=== PATIENT | female | born 1950 | race Caucasian/White ===

== ENCOUNTER → 2018-05-08 | Outpatient (CLI) | payer OTHER ==
[~2018-05-08] MED LIST: ALPR1; ASPI81CH; DOXY100 PO; ESOM20; HYDACE7.5; KLONOPIN; LISI5; QUET25; [UNRECOGNIZED DRUG - OTHER]; [UNRECOGNIZED DRUG - REMARK]
[2018-05-08 18:53] LABS: U Amphetamine Screen Not Detected; U Barbituate Screen Not Detected; U Benzodiazapine Screen Not Detected; U Buprenorphine Screen Not Detected; U Cannabinoids Screen Not Detected; U Cocaine Screen Not Detected; U Methadone Screen Not Detected; U Methamphetamine Screen Not Detected; U Opiates Screen DETECTED; U Oxycodone Screen Not Detected; U Phencyclidine Screen Not Detected; U Propoxyphene Screen Not Detected
== END | disposition home or self-care (01) ==
LOC: LAB SHORT 14:30 → LAB 14:30
PROVIDERS: Physician Assistant
DX: Z51.81 Encounter for therapeutic drug level monitoring (principal); Z79.899 Other long term (current) drug therapy

== ENCOUNTER 2018-10-31 07:20 | Inpatient (IN) | payer OTHER ==
[~2018-10-31] VITALS: Ht 157.5 cm; Wt 77.1 kg
[~2018-10-31 07:20] MED LIST changes: +AMLO5 PO; -ASPI81CH; +ASPI81CH PO; +CIPR250 PO; +DOCU100 PO; +DOXE150 PO; +LAMO100 PO; +LOVA40 PO; +Lopressor 25 mg25 MG PO; +METF500C PO; +Norco 10-325 T1 EACH PO; +Prazosin HCl1 MG PO; +QUETIAPINE FUM400 MG PO; +Verotin-Gr Cap1 EACH PO; +Zantac150 MG PO; +Zestril40 MG PO
[2018-10-31] MEDS ORDERED: ULTRA-LIGHT RO1 EACH UD (09:02)
[2018-10-31] MEDS ORDERED: IBUP800 PO (09:03)
[2018-10-31 10:13] LABS: BASOPHILS ABSOLUTE AUTO 0.05 K/mm3 (0.00-0.23); BASOPHILS PERCENT AUTO 1 % (0-2); EOSINOPHILS ABSOLUTE AUTO 0.15 K/mm3 (0.00-0.68); EOSINOPHILS PERCENT AUTO 2 % (0-6); Hematocrit 43.8 % (33.0-51.0); Hemoglobin 14.2 g/dL (11.5-16.0); IMMATURE GRAN ABSOLUTE AUTO 0.03 K/mm3 (0.00-0.10); IMMATURE GRAN PERCENT AUTO 0 % (0-1); LYMPHOCYTES ABSOLUTE AUTO 1.67 K/mm3 (0.84-5.20); LYMPHOCYTES PERCENT AUTO 22 % (21-46); MONOCYTES ABSOLUTE AUTO 0.78 K/mm3 (0.16-1.47); MONOCYTES PERCENT AUTO 10 % (4-13); Mean Corpuscular HGB 29.6 pg (26.0-34.0); Mean Corpuscular HGB Conc 32.4 g/dL (31.5-36.5); Mean Corpuscular Volume 91 fL (80-100); NEUTROPHILS ABSOLUTE AUTO 4.83 K/mm3 (1.96-9.15); NEUTROPHILS PERCENT AUTO 64 % (41-73); Platelet Count 256 K/mm3 (150-400); RDW Coefficient Variation 13.2 % (11.7-14.2); RDW Standard Deviation 45.1 fL (35.1-46.3); Red Blood Cell Count 4.79 M/mm3 (3.80-5.20); White Blood Cell Count 7.51 K/mm3 (4.00-11.30)
[2018-10-31 10:17] LABS: Source, Urine Catheter
[2018-10-31 10:28] LABS: Alanine Aminotransfer (ALT/SGP 27 U/L (12-78); Albumin, Blood 3.4 g/dL (3.4-5.0); Alk Phos 99 U/L (50-136); Anion Gap 8 mmol/L (6-16); Aspartate Aminotrans (AST/SGOT 26 U/L (12-37); Bilirubin, Total 0.3 mg/dL (0.1-1.0); Blood Urea Nitrogen 15 mg/dL (8-24); Bun/Creatinine Ratio 23.4 (12.0-20.0); CO2, Blood 28 mmol/L (21-32); Calcium, Blood 8.6 mg/dL (8.5-10.1); Chloride, Blood 107 mmol/L (98-108); Creatinine, Blood 0.64 mg/dL (0.40-1.00); Globulin, Blood 3.4 g/dL (2.2-4.0); Glomerular Filtration Rate >60 (60-); Glucose, Blood 106 mg/dL (70-99); Potassium, Blood 4.4 mmol/L (3.5-5.5); Sodium, Blood 143 mmol/L (136-145); Total Protein, Blood 6.8 g/dL (6.4-8.2)
[2018-10-31 10:29] LABS: Bilirubin, Urine Neg (Neg); Blood, Urine Neg (Neg); Glucose Qualitative, Urine Neg (Neg); Ketones, Urine Neg (Neg); Leukocyte Esterase, Urine Neg (Neg); Nitrite, Urine Neg (Neg); Protein, Urine Neg (Neg); Specific Gravity, Urine 1.015 (1.003-1.022); Urobilinogen, Urine 1+ (Normal); pH, Urine 6.5 (5.0-8.0)
[2018-10-31 10:31] LABS: Appearance, Urine Clear (Clear); Color, Urine Yellow (P-Yellow)
--- NOTE | 2018-10-31 17:56 | NUR ---
SHIFT SUMMARY PT A&OX4, VSS, CBGS AC/HS. S/P L HIP FRACTURE. PAIN MANAGED WITH 1 MG DILAUDID. ALYSSA PO, DENIES N&V. PANDEY PATENT & DRAINING MARANDA URINE, STAT LOCK ON, OFF FLOOR. BEDREST. 20G, IVF @ 75 MLS/HR. PLAN IS SG TOMORROW, NPO MIDNIGHT, CONSULT W/ORTHO SURGEON COMPLETE. BLOOD CONSENT SIGNED. WILL CTM & TX PER EMAR UNTIL REPORT GIVEN TO ONCOMING NOC RN.
--- NOTE | 2018-11-01 03:59 | NUR ---
RN STATED SHE WOULD EMPTY PANDEY CATH.
--- NOTE | 2018-11-01 04:26 | NUR ---
SUMMARY: PT ADMITTED 10/31 WITH L HIP FX. NO ACUTE CHANGE TONIGHT. VSS, A/O, OFTEN ANXIOUS AND HAS CHRONIC PAIN. PT REPORTS PAIN AT HIP 10/10 WITH EVERY RATING. PT REPORTS PAIN TOLERABLE WITH 2MG DILAUDID AND "IF SHE DOESN'T MOVE". PT HAS REFUSED SERVERAL REPOSITIONING OFFERS TONIGHT. PANDEY IS DRAINING, NO INSULIN NEEDED AT HS. PT HAS BEEN NPO SINCE 0000. PLAN IS FOR OR TODAY.
[2018-11-01 06:55] LABS: Hematocrit 38.3 % (33.0-51.0); Hemoglobin 12.4 g/dL (11.5-16.0); Mean Corpuscular HGB 29.8 pg (26.0-34.0); Mean Corpuscular HGB Conc 32.4 g/dL (31.5-36.5); Mean Corpuscular Volume 92 fL (80-100); Mean Platelet Volume 9.5 fL (9.1-12.4); Platelet Count 188 K/mm3 (150-400); RDW Coefficient Variation 13.2 % (11.7-14.2); Red Blood Cell Count 4.16 M/mm3 (3.80-5.20); White Blood Cell Count 7.85 K/mm3 (4.00-11.30)
[2018-11-01 07:06] LABS: Anion Gap 5 mmol/L (6-16); Blood Urea Nitrogen 17 mg/dL (8-24); Bun/Creatinine Ratio 31.2 (12.0-20.0); CO2, Blood 30 mmol/L (21-32); Calcium, Blood 8.1 mg/dL (8.5-10.1); Chloride, Blood 103 mmol/L (98-108); Creatinine, Blood 0.55 mg/dL (0.40-1.00); Glomerular Filtration Rate >60 (60-); Glucose, Blood 124 mg/dL (70-99); Potassium, Blood 4.5 mmol/L (3.5-5.5); Sodium, Blood 138 mmol/L (136-145)
--- NOTE | 2018-11-01 11:17 | NUR ---
Patient was resting when I entered the room but quickly awoke upon the mention of her name. Patient complained of pain so we caled the nurse and pain medication was immediately administered. Therapeutic alliance was easily established and so patient shared openly about past hurts, spiritual struugles and emotional pain. I listened empathically, explored adventist beliefs, conducted a life review, gave spiritual direction and counseling department chair, provided emotional support and prayer. Patient responded well to all interventions and displayed evidence of catharsis, restored manoj and elevated mood. Patient expressed gratitude for my time and care.
--- NOTE | 2018-11-01 17:31 | NUR ---
PT ARRIVED TO ROOM POST-OP AT 1610. PT ALERT AND ORIENTED UPON ARRIVAL TO ROOM. DRESSING C/D/I. PT RATED PAIN AT 9/10 BUT REPORTED SHE FELT BETTER AFTER SURGERY. PT WAS PROVIDED WITH PAIN MEDICATION. WILL CONTINUE TO MONITOR.
--- NOTE | 2018-11-01 17:32 | NUR ---
SHIFT SUMMARY PT REPORTS PAIN HAS IMPROVED POST-OP; SHE CONTINUES TO RATE PAIN HIGH AT 9/10. PT VISITS WITH STAFF AND APPEARS COMFORTABLE AND EASILY DISTRACTED FROM THE PAIN. SHE IS TOLERATING PO WELL. VSS. WILL MONITOR UNTIL REPORT TO ONCOMING RN.
--- NOTE | 2018-11-01 19:19 | NUR ---
ANY INTERVENTION [id number] IS ON THE WRONG CHART
[2018-11-02 05:04] LABS: BASOPHILS ABSOLUTE AUTO 0.01 K/mm3 (0.00-0.23); BASOPHILS PERCENT AUTO 0 % (0-2); EOSINOPHILS ABSOLUTE AUTO 0.01 K/mm3 (0.00-0.68); EOSINOPHILS PERCENT AUTO 0 % (0-6); Hematocrit 35.3 % (33.0-51.0); Hemoglobin 11.6 g/dL (11.5-16.0); IMMATURE GRAN ABSOLUTE AUTO 0.06 K/mm3 (0.00-0.10); IMMATURE GRAN PERCENT AUTO 1 % (0-1); LYMPHOCYTES ABSOLUTE AUTO 1.26 K/mm3 (0.84-5.20); LYMPHOCYTES PERCENT AUTO 12 % (21-46); MONOCYTES ABSOLUTE AUTO 1.22 K/mm3 (0.16-1.47); MONOCYTES PERCENT AUTO 11 % (4-13); Mean Corpuscular HGB 30.2 pg (26.0-34.0); Mean Corpuscular HGB Conc 32.9 g/dL (31.5-36.5); Mean Corpuscular Volume 92 fL (80-100); Mean Platelet Volume 9.7 fL (9.1-12.4); NEUTROPHILS ABSOLUTE AUTO 8.39 K/mm3 (1.96-9.15); NEUTROPHILS PERCENT AUTO 77 % (41-73); Platelet Count 182 K/mm3 (150-400); RDW Coefficient Variation 12.6 % (11.7-14.2); RDW Standard Deviation 42.8 fL (35.1-46.3); Red Blood Cell Count 3.84 M/mm3 (3.80-5.20); White Blood Cell Count 10.95 K/mm3 (4.00-11.30)
[2018-11-02 06:06] LABS: Anion Gap 4 mmol/L (6-16); Blood Urea Nitrogen 13 mg/dL (8-24); Bun/Creatinine Ratio 24.1 (12.0-20.0); CO2, Blood 29 mmol/L (21-32); Calcium, Blood 8.2 mg/dL (8.5-10.1); Chloride, Blood 107 mmol/L (98-108); Creatinine, Blood 0.54 mg/dL (0.40-1.00); Glomerular Filtration Rate >60 (60-); Glucose, Blood 118 mg/dL (70-99); Magnesium, Blood 2.3 mg/dL (1.6-2.4); Potassium, Blood 4.6 mmol/L (3.5-5.5); Sodium, Blood 140 mmol/L (136-145)
--- NOTE | 2018-11-02 06:34 | NUR ---
SHIFT SUMMARY PT IS POD 1 L HIP REPAIR. MEDICATED FOR PAIN PER EMAR WITH GOOD EFFECT. PANDEY REMOVED THIS MORNING. ORIGINAL BULKY DRESSING IN PLACE, NO DRAINAGE NOTED. PT SL THIS AM, TAKING PO FLUIDS, NO N/V. ABX GIVEN PER ORDERS. PT IS A&O, ABLE TO MAKE NEEDS KNOWN. WILL CTM UNTIL PASS TO NEXT SHIFT.
--- NOTE | 2018-11-02 14:57 | NUR ---
11/02/18 1457 Joann Serra VERIFICATIONS: EDIT CHART.
--- NOTE | 2018-11-02 18:41 | NUR ---
SUMMARY FAMILY IN TO HAVE DINNER WITH PATIENT. PATIENTS SISTER HERE AND TELLS ME SHE WILL ASSIST MANI AFTER DISCHARGE. PATIENT UP IN CHAIR MUCH OF DAY, TEARFUL AT TIMES REGARDING HER MEDICAL CONDITION BUT CALMS WHEN POSITIVE COMMENTS GIVEN REGARDING HER PROGRESS SINCE SURGERY. PATIENT IS HOPING TO DISCHARGE HOME WITH FAMILY BUT IS IN AGREEMENT TO SNF STAY IF IT IS RECOMMENDED AFSHAN PUENTE RN
--- NOTE | 2018-11-03 04:20 | NUR ---
SHIFT SUMMARY PT IS POD 1 LEFT HIP REPAIR. GAUZE AND PRESSURE TAPE TO SITE ARE C/D/I. SHE WORKED WITH THERAPY YESTERDAY AND WILL CONTINUE TO SEE THEM FOR STRENGTHENING. PT COMPLAINED HER PAIN WAS VERY HIGH IN THE 8-10/10 RANGE AT BEDTIME BUT SHE APPEARS GENERALLY COMFORTABLE AND ASKED TO NOT BE WOKEN UP FOR HER MIDNIGHT SCHEDULED NORCO. PT MEDICATED FOR PAIN PER EMAR. SHE IS A&O AND ABLE TO MAKE NEEDS KNOWN BUT HAS POOR SHORT TERM MEMORY. 1 ASSIST UP W/ GB AND FWW FOR AMBULATION. SHE IS EATING, DRINKING, AND VOIDING WELL. WILL CTM UNTIL PASS TO NEXT SHIFT.
--- NOTE | 2018-11-03 16:04 | NUR ---
SHIFT SUMMARY PT A&OX4, VSS, POD2 L HIP NAILING, 2 SMALL AQUACEL CDI, TTWB, 2 LIDODERM PATCHES ON LLE. CBGS CNI. AMB W/FWW & GB TO BS AND 10 FEET IN ROOM. PAIN MANAGED WITH 10 MG TID SCHEDULED FOR CHRONIC PAIN, AND 10 MG Q8 PRN PAIN. ALYSSA PO, DENIES N&V. VOIDING WELL, BM TODAY. HOME O2 EVAL COMPLETE: PT REQUIRES 2L W/EXERTION AND NOC, RA AT REST. WHEELCHAIR SCRIPT GIVEN TO PT. PLAN IS FOR PT TO DC TOMORROW. DID WELL WITH THERAPY WITH CAR TRANSFER AND STAIRS. FAMILY AWARE:PT INSURANCE DOES NOT COVER TRANSPORTATION HOME FOR PT, IF DESIRES [facility] IT WILL BE SELF-PAY. WILL CTM & TX PER EMAR UNTIL REPORT GIVEN TO ONCOMING RN.
[2018-11-04 04:11] LABS: Hematocrit 33.6 % (33.0-51.0); Hemoglobin 10.9 g/dL (11.5-16.0); Mean Corpuscular HGB 29.9 pg (26.0-34.0); Mean Corpuscular HGB Conc 32.4 g/dL (31.5-36.5); Mean Corpuscular Volume 92 fL (80-100); Mean Platelet Volume 9.4 fL (9.1-12.4); Platelet Count 208 K/mm3 (150-400); RDW Coefficient Variation 12.9 % (11.7-14.2); RDW Standard Deviation 43.8 fL (35.1-46.3); Red Blood Cell Count 3.65 M/mm3 (3.80-5.20); White Blood Cell Count 7.75 K/mm3 (4.00-11.30)
[2018-11-04 04:29] LABS: Albumin, Blood 2.8 g/dL (3.4-5.0); Anion Gap 5 mmol/L (6-16); Blood Urea Nitrogen 20 mg/dL (8-24); Bun/Creatinine Ratio 40.9 (12.0-20.0); CO2, Blood 29 mmol/L (21-32); Calcium, Blood 8.2 mg/dL (8.5-10.1); Chloride, Blood 109 mmol/L (98-108); Creatinine, Blood 0.49 mg/dL (0.40-1.00); Glomerular Filtration Rate >60 (60-); Glucose, Blood 124 mg/dL (70-99); Phosphorus, Blood 3.5 mg/dL (2.5-4.9); Sodium, Blood 143 mmol/L (136-145)
--- NOTE | 2018-11-04 04:51 | NUR ---
SHIFT SUMMARY: PT POD 3 FOR NAILING OF L HIP. A&0X4. VS WNL. ON 2L NC AT NIGHTTIME AND UPON EXERTION. SATS STABLE ABOVE 90%. AQUACEL (X2) TO L HIP CDI. PAIN MANAGED WITH SCHED NORCO AND LIDOCAINE PATCH FOR CHRONIC PAIN. TTWB. AMB W/FWW AND GB TO BSC. PT OFFERED HELP TO BSC THIS AM, HOWEVER PT REFUSING. HAS NOT VOIDED THIS SHIFT. REFUSING SNF- PLAN IS FOR PT TO DISCHARGE HOME TODAY WITH FAMILY.
--- NOTE | 2018-11-04 08:26 | NUR ---
DISCUSSED PT'S STATUS WITH DR CASTANON WHO IS HERE TO SEE PT.
[2018-11-04] MEDS ORDERED: ALBU90OI INH (14:56)
[2018-11-04] MEDS ORDERED: BISA5EC PO (14:57)
[2018-11-04] MEDS ORDERED: HYDR1TAB94 PO (14:58)
[2018-11-04] MEDS ORDERED: Hydrocodone-Ap1 EA20 PO (14:59)
[2018-11-04] MEDS ORDERED: LIDO700A20 TOP (15:01)
[2018-11-04] MEDS ORDERED: MOME220I INH (15:03)
[2018-11-04] MEDS ORDERED: METO10 PO (15:04)
[2018-11-04] MEDS ORDERED: TIOT18 INH (15:05)
[2018-11-04] MEDS ORDERED: ONDA4ODT MM (15:06)
[2018-11-04] MEDS ORDERED: ENOX40I SC (15:21)
--- NOTE | 2018-11-04 15:40 | NUR ---
HOME HEALTH: PAPERWORK WAS FAXED TO [facility] PT BEING DC'D WITH Harvey.
--- NOTE | 2018-11-04 15:40 | NUR ---
DISCHARGE: PT AND FAMILY REPORTS UNDERSTANDING OF DISCHARGE INSTRUCTIONS INCLUDING SMOKING CESSATION. PT GIVEN DRESSINGS, SCRIPT, BELONGINGS. FAMILY REPORTS HAVING APPR EQUIP AT HOME. MEDICATIONS CALLED TO [facility] IN [place] PER PT REQ.
== END 2018-11-04 15:55 | disposition home or self-care (01) | DRG 482 ==
LOC: ER 07:20 → SURS 12:16
PROVIDERS: Family Medicine; Orthopaedic Surgery; Physician Assistant; ADMIT Internal Medicine
PROC: 0QS746Z Reposition Left Upper Femur with Intramedullary Internal Fixation Device, Percutaneous Endoscopic Approach (ICD-10-PCS; principal; 2018-11-01 12:30)
DX: S72.142A Displaced intertrochanteric fracture of left femur, initial encounter for closed fracture (principal); J44.9 Chronic obstructive pulmonary disease, unspecified; E11.9 Type 2 diabetes mellitus without complications; G89.4 Chronic pain syndrome; M54.9 Dorsalgia, unspecified; K21.9 Gastro-esophageal reflux disease without esophagitis; I10 Essential (primary) hypertension; W19.XXXA Unspecified fall, initial encounter; F17.200 Nicotine dependence, unspecified, uncomplicated; Z88.8 Allergy status to other drugs, medicaments and biological substances; Z79.84 Long term (current) use of oral hypoglycemic drugs; Z79.82 Long term (current) use of aspirin; Z79.899 Other long term (current) drug therapy
CPT/HCPCS: 36415; 51702; 71045; 73502; 73700; 80048; 80053; 80069; 81003; 82947; 83735; 85025; 85027; 86900; 86901; 93005; 93010; 94640; 94760; 94761; 94762; 96374; 96375; 97110; 97116; 97161; 97165; 97530; 97535; 99285-25; C1713; C1769; J0690; J1100; J1170; J1650; J1885; J2370; J2405; J3010; J3480; J7120

== ENCOUNTER → 2020-03-18 | Outpatient (CLI) | payer OTHER ==
[~2020-03-18] MED LIST changes: +ALBU90OI INH; +BISA5EC PO; +ENOX40I SC; +HYDR1TAB94 PO; +Hydrocodone-Ap1 EA20 PO; +IBUP800 PO; +LIDO700A20 TOP; +METO10 PO; +MOME220I INH; +ONDA4ODT MM; +TIOT18 INH; +ULTRA-LIGHT RO1 EACH UD
== END | disposition home or self-care (01) ==
LOC: LAB SRC 10:30 → LAB SHORT 10:30
DX: E11.9 Type 2 diabetes mellitus without complications (principal)
CPT/HCPCS: 82043

== ENCOUNTER 2020-04-30 04:30 | Emergency (ER) | payer OTHER ==
[~2020-04-30] VITALS: Ht 157.5 cm; Wt 75.3 kg
[2020-04-30 07:29] LABS: BASOPHILS ABSOLUTE AUTO 0.05 K/mm3 (0.00-0.23); BASOPHILS PERCENT AUTO 0 % (0-2); EOSINOPHILS ABSOLUTE AUTO 0.16 K/mm3 (0.00-0.68); EOSINOPHILS PERCENT AUTO 1 % (0-6); Hematocrit 46.7 % (33.0-51.0); Hemoglobin 15.2 g/dL (11.5-16.0); IMMATURE GRAN ABSOLUTE AUTO 0.04 K/mm3 (0.00-0.10); IMMATURE GRAN PERCENT AUTO 0 % (0-1); LYMPHOCYTES ABSOLUTE AUTO 2.54 K/mm3 (0.84-5.20); LYMPHOCYTES PERCENT AUTO 22 % (21-46); MONOCYTES ABSOLUTE AUTO 0.95 K/mm3 (0.16-1.47); MONOCYTES PERCENT AUTO 8 % (4-13); Mean Corpuscular HGB Conc 32.5 g/dL (31.5-36.5); Mean Corpuscular Volume 92 fL (80-100); Mean Platelet Volume 9.6 fL (9.1-12.4); NEUTROPHILS ABSOLUTE AUTO 7.88 K/mm3 (1.96-9.15); NEUTROPHILS PERCENT AUTO 68 % (41-73); Platelet Count 249 K/mm3 (150-400); RDW Coefficient Variation 13.1 % (11.7-14.2); RDW Standard Deviation 44.4 fL (35.1-46.3); Red Blood Cell Count 5.07 M/mm3 (3.80-5.20); White Blood Cell Count 11.62 K/mm3 (4.00-11.30)
[2020-04-30 07:35] LABS: Alanine Aminotransfer (ALT/SGP 26 U/L (12-78); Albumin, Blood 3.7 g/dL (3.4-5.0); Albumin/Globulin Ratio 1.1 (0.8-1.8); Alk Phos 89 U/L (50-136); Anion Gap 1 mmol/L (6-16); Aspartate Aminotrans (AST/SGOT 18 U/L (12-37); Bilirubin, Total 0.2 mg/dL (0.1-1.0); Blood Urea Nitrogen 16 mg/dL (8-24); Bun/Creatinine Ratio 27.4 (12.0-20.0); CO2, Blood 32 mmol/L (21-32); Calcium, Blood 9.5 mg/dL (8.5-10.1); Chloride, Blood 109 mmol/L (98-108); Creatinine, Blood 0.59 mg/dL (0.40-1.00); Globulin, Blood 3.4 g/dL (2.2-4.0); Glomerular Filtration Rate >60 (60-); Glucose, Blood 125 mg/dL (70-99); Potassium, Blood 4.2 mmol/L (3.5-5.5); Sodium, Blood 142 mmol/L (136-145); Total Protein, Blood 7.1 g/dL (6.4-8.2)
== END 2020-04-30 08:28 | disposition home or self-care (01) ==
LOC: ER 04:30
PROVIDERS: Emergency Medicine
DX: F41.9 Anxiety disorder, unspecified (principal); R20.2 Paresthesia of skin; F32.9 Major depressive disorder, single episode, unspecified; I10 Essential (primary) hypertension; J44.9 Chronic obstructive pulmonary disease, unspecified; E11.9 Type 2 diabetes mellitus without complications; K21.9 Gastro-esophageal reflux disease without esophagitis; Z88.8 Allergy status to other drugs, medicaments and biological substances; Z79.899 Other long term (current) drug therapy; Z79.82 Long term (current) use of aspirin; Z79.84 Long term (current) use of oral hypoglycemic drugs; F17.210 Nicotine dependence, cigarettes, uncomplicated
CPT/HCPCS: 36415; 70450; 80053; 82947; 85025; 99284-25

== ENCOUNTER 2022-10-17 13:59 | Inpatient (IN) | payer OTHER ==
[~2022-10-17] VITALS: Ht 162.6 cm; Wt 73.6 kg
[2022-10-17 14:30] LABS: Calcium, Ionized (POC) 1.25 mmol/L (1.10-1.46); Chloride (POC) 105 mmol/L (98-108); Glucose (ISTAT POC) 190 mg/dL (70-99); Hemoglobin (POC) 13.6 g/dL (12.0-16.0); Potassium (POC) 3.7 mmol/L (3.5-5.5); Sodium (POC) 143 mmol/L (135-148); Total CO2 (POC) 32 mmol/L (21-32)
[2022-10-17 14:37] LABS: PCO2 Arterial 52.1 mmHg (35-45); PO2 Arterial 317 mmHg (80-100); pH Blood Arterial 7.37 (7.35-7.45)
[2022-10-17 14:44] LABS: Hemoglobin 13.9 g/dL (11.5-16.0); Mean Corpuscular HGB 29.4 pg (26.0-34.0); Mean Corpuscular HGB Conc 31.6 g/dL (31.5-36.5); Mean Corpuscular Volume 93 fL (80-100); Mean Platelet Volume 9.2 fL (9.1-12.4); Platelet Count 252 K/mm3 (150-400); RDW Coefficient Variation 13.1 % (11.7-14.2); RDW Standard Deviation 45.2 fL (35.1-46.3); Red Blood Cell Count 4.73 M/mm3 (3.80-5.20); White Blood Cell Count 8.14 K/mm3 (4.00-11.30)
[2022-10-17 14:56] LABS: Source, Urine Foley catheter
[2022-10-17 15:00] LABS: Albumin, Blood 2.7 g/dL (3.4-5.0); Albumin/Globulin Ratio 0.6 (0.8-1.8); Bilirubin, Total 0.6 mg/dL (0.1-1.0); Bun/Creatinine Ratio 36.1 (12.0-20.0); Creatinine, Blood 0.89 mg/dL (0.40-1.00); Globulin, Blood 4.9 g/dL (2.2-4.0); Potassium, Blood 3.8 mmol/L (3.5-5.5); Total Protein, Blood 7.6 g/dL (6.4-8.2)
[2022-10-17 15:10] LABS: Appearance, Urine Hazy (Clear); Blood, Urine 2+ (Neg); Color, Urine Amber (P-Yellow); Glucose Qualitative, Urine Neg (Neg); Ketones, Urine 1+ (Neg); Leukocyte Esterase, Urine 1+ (Neg); Nitrite, Urine Pos (Neg); Protein, Urine 3+ (Neg); Specific Gravity, Urine 1.025 (1.003-1.022); Urobilinogen, Urine 3+ (Normal)
[2022-10-17 15:32] LABS: Bilirubin, Urine 2+ (Neg)
[2022-10-17 15:36] LABS: Bacteria Mod /hpf; Squamous Epithelial Cells Few /hpf (Few)
[2022-10-17 15:37] LABS: Mucus Light (0-Heavy)
[2022-10-17 15:38] LABS: Granular Casts 0-2 /lpf (0)
[2022-10-17] MEDS ORDERED: PEPCID40 MG PO (15:38)
[2022-10-17] MEDS ORDERED: METO50 PO (15:44)
[2022-10-17 16:09] LABS: Influenza A, PCR NEGATIVE (NEGATIVE); Influenza B, PCR NEGATIVE (NEGATIVE); Resp Syncytial Virus, PCR NEGATIVE (NEGATIVE); SARS-Cov-2 (COVID-19) PCR, MMC NEGATIVE (NEGATIVE)
[2022-10-17 16:29] LABS: BAND PERCENT MAN 2 % (0-8); BASOPHILS PERCENT MAN 0 % (0-2); EOSINOPHILS PERCENT MAN 0 % (0-6); LYMPHOCYTES ABSOLUTE MAN 1.13 K/mm3 (0.84-5.20); LYMPHOCYTES PERCENT MAN 14 % (21-46); MONOCYTES ABSOLUTE MAN 0.89 K/mm3 (0.16-1.47); MONOCYTES PERCENT MAN 11 % (4-13); MYELOCYTE ABSOLUTE MAN 0.08 K/mm3 (0.00-0.00); MYELOCYTE PERCENT MAN 1 % (0-0); NEUTROPHILS ABSOLUTE MAN 6.02 K/mm3 (1.96-9.15); SEG NEUTROPHILS PERCENT MAN 72 % (41-73); TOTAL CELLS COUNTED 100
[2022-10-17] MEDS ORDERED: Desyrel150 MG PO (20:37)
[2022-10-17] MEDS ORDERED: PROBIOTIC1 EA13 PO (20:40)
[2022-10-17] MEDS ORDERED: Hair, Skin & N1 EACH PO (20:40)
[2022-10-17 22:07] LABS: PCO2 Arterial 44.8 mmHg (35-45); PO2 Arterial 102 mmHg (80-100); pH Blood Arterial 7.38 (7.35-7.45)
[2022-10-18 04:11] LABS: Hematocrit 31.9 % (33.0-51.0); Hemoglobin 10.5 g/dL (11.5-16.0); Mean Corpuscular HGB 30.1 pg (26.0-34.0); Mean Corpuscular HGB Conc 32.9 g/dL (31.5-36.5); Mean Corpuscular Volume 91 fL (80-100); Mean Platelet Volume 9.8 fL (9.1-12.4); NRBC ABSOLUTE 0.02 K/mm3 (0.00-0.02); NRBC Auto 0.2 /100 WBC (0.0-0.2); Platelet Count 225 K/mm3 (150-400); RDW Coefficient Variation 13.2 % (11.7-14.2); Red Blood Cell Count 3.49 M/mm3 (3.80-5.20)
[2022-10-18 05:40] LABS: BAND PERCENT MAN 22 % (0-8); BASOPHILS PERCENT MAN 0 % (0-2); EOSINOPHILS PERCENT MAN 0 % (0-6); LYMPHOCYTES ABSOLUTE MAN 1.07 K/mm3 (0.84-5.20); LYMPHOCYTES PERCENT MAN 13 % (21-46); MONOCYTES ABSOLUTE MAN 0.49 K/mm3 (0.16-1.47); MONOCYTES PERCENT MAN 6 % (4-13); MYELOCYTE ABSOLUTE MAN 0.24 K/mm3 (0.00-0.00); MYELOCYTE PERCENT MAN 3 % (0-0); NEUTROPHILS ABSOLUTE MAN 6.47 K/mm3 (1.96-9.15); SEG NEUTROPHILS PERCENT MAN 56 % (41-73); TOTAL CELLS COUNTED 100
--- NOTE | 2022-10-18 06:22 | NUR ---
Shift summary: Pt is intubated with a size 7.5 ETT 23cm at the teeth. Vent settings 16/450/5/35%. She is sedated with propofol at 55mcg/min and Versed on standby. She is currently resting comfortably in bed. Lung sounds have improved throughout the night after breathing treatments and suctioning with thick blood-tinged secretions. SR with HR in the 80s with frequent PVC's, still currently waiting for AM labs to result. BP stable with levophed at 2mcg/min. Rt subclavian central line placed at beginning of shift. OGT clamped. Alvarado draining pushpa colored urine - 330ml output overnight.
[2022-10-18 06:31] LABS: Albumin, Blood 3.1 g/dL (3.4-5.0); Bilirubin, Total 0.5 mg/dL (0.1-1.0); Calcium, Blood 8.9 mg/dL (8.5-10.1); Potassium, Blood 2.8 mmol/L (3.5-5.5)
[2022-10-18 06:32] LABS: Albumin/Globulin Ratio 0.9 (0.8-1.8); Bun/Creatinine Ratio 54.2 (12.0-20.0); Creatinine, Blood 0.59 mg/dL (0.40-1.00); Globulin, Blood 3.3 g/dL (2.2-4.0); Magnesium, Blood 2.1 mg/dL (1.6-2.4); Phosphorus, Blood 0.6 mg/dL (2.5-4.9); Total Protein, Blood 6.4 g/dL (6.4-8.2)
--- NOTE | 2022-10-18 07:52 | NUR ---
AM NOTE... ASSUMED CARE OF PT AT 0700. SHE IS INTUBATED AND SEDATED WITH PROPOFOL RUNNING AT 55MCG/KG. VENT SETTINGS ARE 16/450/5/35% WITH O2 SATS >90%. L/S COARSE RHONCHI T/O WITH SOME WHEEZES NOTED IN THE UPPER LOBES DIM IN THE LOWER LOBES. RR IN THE 20'S. MODERATE AMOUNT OF THICK, DEY/PINK SECRETIONS NOTED WITH ET TUBE SUCTION. SHE IS IN SR IN THE 90'S WITH FREQUENT PVCs, LEVOPHED WAS ON AT 2MCG TO KEEP MAPS >60, THIS WAS STOPPED AT 0730. NO EDEMA NOTED ON ASSESSMENT. OG TUBE IS PATENT, BT PRESENT AND HYPOACTIVE, ABD IS SOFT TO PALPATION. TEMP PANDEY IS PATENT AND DRAINING TO GRAVITY. HER CURRENT TEMP IS 98.9. DURING ASSESSMENT THE PT WOKE UP AND WAS VERY AGITATED, SHE PULLED HERSELF UP OFF THE BED AND ATTEMPTED TO GRAB THE ET TUBE. SHE WOULD NOD APPROPRIATELY TO SIMPLE QUESTIONS BUT WAS NOT ABLE TO FOLLOW COMMANDS SUCH "WIGGLE YOUR TOES." DURING THIS TIME THE PT'S PROPOFOL WAS INCREASED FROM 55MCG TO 65MCG. WILL CONTINUE TO MONITOR.
[2022-10-18 14:14] LABS: Magnesium, Blood 2.1 mg/dL (1.6-2.4)
[2022-10-18 14:17] LABS: Bun/Creatinine Ratio 41.6 (12.0-20.0); Calcium, Blood 8.7 mg/dL (8.5-10.1); Creatinine, Blood 0.55 mg/dL (0.40-1.00); Phosphorus, Blood 2.3 mg/dL (2.5-4.9); Potassium, Blood 2.9 mmol/L (3.5-5.5)
--- NOTE | 2022-10-18 17:01 | NUR ---
SHIFT SUMMARY... THE PT CONTINUES TO BE ON THE VENT AND STABLE, NO CHANGES TO THE VENT SETTINGS. THE PT HAS BEEN ON LOW DOSE LEVOPHED OFF AND ON T/O THIS SHIFT (SEE ICU FLOW SHEET.) THE PT WAS STARTED ON A FENTANYL LINOLEUM TILE FLOOR LAYER AT 25MCG AND TITRATED UP TO 50MCG, THE VERSED GTT WAS TITRATED OFF, THE PT'S PROPOFOL GTT WAS AT 65MCG/KG AND TITRATED DOWN TO 45MCG/KG, THE PT WAKES EASILY AND BECOMES VERY AGITATED AND AXIOUS WITH COUGHING FITS AND ATTEMPTS TO SELF EXTUBATE. L/S CONTINUE TO HAVE COARSE RHONCHI AND SCATTERED WHEEZES T/O BUT SECRETIONS HAVE IMPROVED FROM COPIOUS AMOUNTS TO MODERATE AMOUNTS OF THICK DEY/RED SPUTUM. THE PT HAS NOT HAD A BM THIS SHIFT. THE PT HAS BEEN AFEBRILE. TUBE FEEDS WERE STARTED PER ORDERS. TEMP PANDEY IS PATENT AND DRAINING TO GRAVITY. WILL CONTINUE TO MONITOR UNTIL REPORT IS GIVEN TO ONCOMING RN.
[2022-10-19 04:30] LABS: Hematocrit 32.4 % (33.0-51.0); Hemoglobin 10.6 g/dL (11.5-16.0); Mean Corpuscular HGB 29.6 pg (26.0-34.0); Mean Corpuscular HGB Conc 32.7 g/dL (31.5-36.5); Mean Corpuscular Volume 91 fL (80-100); Mean Platelet Volume 9.6 fL (9.1-12.4); NRBC ABSOLUTE 0.03 K/mm3 (0.00-0.02); NRBC Auto 0.2 /100 WBC (0.0-0.2); Platelet Count 259 K/mm3 (150-400); RDW Coefficient Variation 13.4 % (11.7-14.2); RDW Standard Deviation 44.7 fL (35.1-46.3); Red Blood Cell Count 3.58 M/mm3 (3.80-5.20); White Blood Cell Count 19.04 K/mm3 (4.00-11.30)
[2022-10-19 04:56] LABS: Albumin, Blood 2.6 g/dL (3.4-5.0); Anion Gap 3 mmol/L (6-16); Blood Urea Nitrogen 20 mg/dL (8-24); Bun/Creatinine Ratio 40.7 (12.0-20.0); CO2, Blood 28 mmol/L (21-32); Calcium, Blood 8.3 mg/dL (8.5-10.1); Chloride, Blood 113 mmol/L (98-108); Creatinine, Blood 0.49 mg/dL (0.40-1.00); Glomerular Filtration Rate 101 (60-); Glucose, Blood 205 mg/dL (70-99); Magnesium, Blood 1.9 mg/dL (1.6-2.4); Phosphorus, Blood 1.4 mg/dL (2.5-4.9); Potassium, Blood 3.3 mmol/L (3.5-5.5); Sodium, Blood 144 mmol/L (136-145)
[2022-10-19 05:32] LABS: BAND PERCENT MAN 8 % (0-8); BASOPHILS PERCENT MAN 0 % (0-2); EOSINOPHILS PERCENT MAN 0 % (0-6); LYMPHOCYTES ABSOLUTE MAN 1.14 K/mm3 (0.84-5.20); LYMPHOCYTES PERCENT MAN 6 % (21-46); METAMYELOCYTE ABSOLUTE MAN 0.19 K/mm3 (0.00-0.00); METAMYELOCYTE PERCENT MAN 1 % (0-0); MONOCYTES ABSOLUTE MAN 0.95 K/mm3 (0.16-1.47); MONOCYTES PERCENT MAN 5 % (4-13); MYELOCYTE ABSOLUTE MAN 0.38 K/mm3 (0.00-0.00); MYELOCYTE PERCENT MAN 2 % (0-0); NEUTROPHILS ABSOLUTE MAN 16.37 K/mm3 (1.96-9.15); SEG NEUTROPHILS PERCENT MAN 78 % (41-73); TOTAL CELLS COUNTED 100
--- NOTE | 2022-10-19 07:26 | NUR ---
Shift summary: Pt is intubated with a size 7.5 ETT 23cm at the teeth. Vent settings 16/450/5/35%. She is sedated with propofol at 55mcg/min and Fentanyl at 75mcg. She is currently resting comfortably in bed. Lung sounds rhonchorus throughout and suctioned thick antunez secretions inline. SR with HR in the 90s with frequent PVC's, K and phos levels low and currently being replaced. BP stable with levophed on standby. TF infusing through OGT at 30ml/hr, which is goal. Alvarado draining clear yellow urine.
--- NOTE | 2022-10-19 17:55 | NUR ---
END OF SHIFT SUMMARY NEURO: SEDATED, PROPOFOL AND FENTANYLY INFUSING CONTINUOUSLY. PT OPENS EYES TO VOICE AND NODS APPROPRIATELY, FOLLOWS SIMPLE COMMANDS. CARDIAC: SR WITH PVC'S, BP 106/69. RESP: LUNG SOUNDS COARSE, VENT SETTINGS 16/450/5/35%, NO PLANS TO WEAN TODAY DUE TO LUNG SOUNDS. MINIMAL SECRETIONS SUCTIONED FROM ETT. GI: OGT WITH VHP INFUSING AT 30ML/HR (GOAL). PT TOLERATING WELL. IS PASSING FLATUS BUT NO BM THIS SHIFT. BS HYPOACTIVE. : PANDEY TO GRAVITY PATENT AND DRAINING CLEAR YELLOW URINE, UO 1200ML THIS SHIFT. SKIN: UNCHANGED, MEPILEX TO COCCYX, NO BREAKDOWN NOTED. IV: LEFT SUBCLAVIAN QUAD LUMEN CATH INFUSING, ALL PORTS FLUSH AND DRAW BLOOD. FAMILY (DAUGHTER AND SON-IN-LAW) TO BEDSIDE FOR SHORT VISIT. THEY BROUGHT PT'S BIBLE FOR HER. UPDATED ON CURRENT CONDITION AND POC.
--- NOTE | 2022-10-19 19:39 | NUR ---
Assumed care of pt. Pt is intubated and sedated with propofol and fentanyl. Alvarado intact and draining clear yellow urine. TF infusing. VS currently stable.
[2022-10-20 04:15] LABS: Hematocrit 32.2 % (33.0-51.0); Hemoglobin 10.6 g/dL (11.5-16.0); Mean Corpuscular HGB 29.9 pg (26.0-34.0); Mean Corpuscular HGB Conc 32.9 g/dL (31.5-36.5); Mean Corpuscular Volume 91 fL (80-100); Mean Platelet Volume 9.2 fL (9.1-12.4); NRBC ABSOLUTE 0.04 K/mm3 (0.00-0.02); NRBC Auto 0.2 /100 WBC (0.0-0.2); Platelet Count 266 K/mm3 (150-400); RDW Coefficient Variation 13.7 % (11.7-14.2); RDW Standard Deviation 46.4 fL (35.1-46.3); Red Blood Cell Count 3.55 M/mm3 (3.80-5.20); White Blood Cell Count 21.35 K/mm3 (4.00-11.30)
[2022-10-20 04:57] LABS: Albumin, Blood 2.3 g/dL (3.4-5.0); Anion Gap 1 mmol/L (6-16); Blood Urea Nitrogen 25 mg/dL (8-24); Bun/Creatinine Ratio 58.3 (12.0-20.0); CO2, Blood 33 mmol/L (21-32); Calcium, Blood 8.2 mg/dL (8.5-10.1); Chloride, Blood 111 mmol/L (98-108); Creatinine, Blood 0.43 mg/dL (0.40-1.00); Glomerular Filtration Rate 105 (60-); Glucose, Blood 215 mg/dL (70-99); Magnesium, Blood 1.8 mg/dL (1.6-2.4); Phosphorus, Blood 2.2 mg/dL (2.5-4.9); Potassium, Blood 4.5 mmol/L (3.5-5.5); Sodium, Blood 145 mmol/L (136-145)
[2022-10-20 05:44] LABS: BAND PERCENT MAN 3 % (0-8); BASOPHILS PERCENT MAN 0 % (0-2); EOSINOPHILS ABSOLUTE MAN 0.21 K/mm3 (0.00-0.68); EOSINOPHILS PERCENT MAN 1 % (0-6); LYMPHOCYTES ABSOLUTE MAN 1.28 K/mm3 (0.84-5.20); LYMPHOCYTES PERCENT MAN 6 % (21-46); METAMYELOCYTE ABSOLUTE MAN 0.85 K/mm3 (0.00-0.00); METAMYELOCYTE PERCENT MAN 4 % (0-0); MONOCYTES ABSOLUTE MAN 0.42 K/mm3 (0.16-1.47); MONOCYTES PERCENT MAN 2 % (4-13); MYELOCYTE ABSOLUTE MAN 0.64 K/mm3 (0.00-0.00); MYELOCYTE PERCENT MAN 3 % (0-0); NEUTROPHILS ABSOLUTE MAN 17.93 K/mm3 (1.96-9.15); SEG NEUTROPHILS PERCENT MAN 81 % (41-73); TOTAL CELLS COUNTED 100
--- NOTE | 2022-10-20 06:52 | NUR ---
Shift summary: No acute events overnight. Pt is still intubated with a size 7.5 ETT 23cm at the teeth. Vent settings 16/450/5/35%. She is sedated with propofol at 50mcg/min and Fentanyl at 75mcg/hr. Pt is currently resting comfortably in bed and occaisionally has a strong productive cough. Lungs still sound rhochorus and has thick antunez secretions. SR with HR in the 90s and BP stable overnight. TF infusing through OGT at 30ml/hr, which is goal. Alvarado draining clear yellow urine.
--- NOTE | 2022-10-20 17:12 | NUR ---
CASE CONF WITH RN, REPORTS DAUGHTER HAS EFT FOR THE DAY AND APPEARS TO BE COPING OK. REPORTS PT HAS SHOWN SOME INPROVEMENT WELL. TC TO DAUGHTER IN LAW, SUNNY. SHE REPORTS THAT SHE MOVED IN WITH THE PT APPROX 2 YEARS AGO AFTER HER FATHER AND PROVIDES 24 HOUR CARE FOR THE PT. PT HAS COPD AND SPENDS MOST OF THE TIME IN BED. SUNNY REPORTS SHE IS DOING BETTER TODAY NOW THAT THE PATIENT HAS BEEN SHOWING SOME IMPROVEMENT. SUNNY DOES ASK IF WE HAVE A LIST OF CAREGIVERS TO PROVIDE RESPITE FOR HER WHILE SHE HAS APPOINTENT OR NEEDS A BREAK. WE ALSO DISCUSS DC PLAN, NOTHING AT THIS TIME AND WOULD LIKE TO TALK TO CM TOMORROW. ADVISED THE CM WILL HELP WITH DC PLAN AND MAY HAVE ALIST OF CG FOR RESPITE. SHE REPORTS SHE WILL BE HERE TO VISIT THE PATIENT APPROX 1400 TOMORROW. I ADVISED HER I WILL ASK THE CM TO COME AND SEE HER. SUNNY HAS NO OTHER QUESTIONS OR CONCERNS AND IS APPRECIATIVE OF THE CALL. I ADVISED HER PALLIATIVE CARE WILL CONTINUE TO FOLLOW AND OFFER SUPPORT. WILL HAVE PALLIATIVE CARE MAKE A VISIT TOMORROW WHEN SUNNY IS HERE VISITING IN THE ICU.
--- NOTE | 2022-10-20 17:27 | NUR ---
SHIFT SUMMARY NO ACUTE CHANGES THIS SHIFT. PT REMAINS INTUBATED AND SEDATED. VENT SETTINGS AC 16, TV 450, PEEP 5, FIO2 35%. PT DID NOT TOLERATE SBT THIS AM WELL. PT BECAME INCREASINGLY RESTLESS AND WITH CONTINUOUS COUGHING FITS. AFTER SEDATION VACATION PROPOFOL RESTARTED AT 50 MCG/KG/MIN AND FENTANYL RELIEF DRILLER INFUSING AT 75 MCG/HR. WITH SEDATION PT IS ABLE TO ROUSE TO VERBAL STIMULI AND TRACKS WHEN IN ROOM. PT NODS HEAD YES/NO TO QUESTIONS. PT WITH LARGE AMOUNT OF THICK DEY SECRETIONS WITH ETT SUCTION. OGT IN PLACE WITH TF INFUSING AT GOAL RATE. CENTRAL LINE TO LEFT SUBCLAVIAN REMAINS C/D/I. NS INFUSING AT 100 ML/HR. PANDEY TEMP PROBE IN PLACE WITH YELLOW URINE OUTPUT NOTED. VITAL SIGNS STABLE. PT DAUGHTER AT BEDSIDE THIS EVENING. SBW RESTRAINTS REMAIN IN PLACE. WILL CONTINUE TO MONITOR AND REPORT OFF TO ONCOMING RN.
--- NOTE | 2022-10-20 19:00 | NUR ---
ASSUMED CARE ASSUMED CARE OF PATIENT. REMAINS INTUBATED- AC/VC 16/450/5/35%. RR 16-18. SEDATED WITH PROPOFOL AT 50MCG/KG/MIN AND FENTANYL 75MCG/HR. PT OPENS EYES TO ANY STIMULI. NODS/SHAKES HEAD YES/NO APPROPRIATELY. FOLLOWS SIMPLE COMMANDS. DENIES C/O PAIN OR DISCOMFORT AT THIS TIME. MONITOR SHOWS NSR WITH PACs, RATE 80s-90s. BP STABLE. TEMP 99.1F. OG WITH VHP AT GOAL RATE OF 30MLS/HR. PANDEY PATENT AND DRAINING TO GRAVITY. NS INFUSING AT 100MLS/HR PER ORDER. SEE SHIFT ASSESSMENT FOR FULL ASSESSMENT.
[2022-10-21 05:30] LABS: Hematocrit 34.5 % (33.0-51.0); Hemoglobin 11.2 g/dL (11.5-16.0); Mean Corpuscular HGB 29.9 pg (26.0-34.0); Mean Corpuscular HGB Conc 32.5 g/dL (31.5-36.5); Mean Corpuscular Volume 92 fL (80-100); Mean Platelet Volume 9.4 fL (9.1-12.4); NRBC ABSOLUTE 0.09 K/mm3 (0.00-0.02); NRBC Auto 0.3 /100 WBC (0.0-0.2); Platelet Count 285 K/mm3 (150-400); RDW Coefficient Variation 14.2 % (11.7-14.2); RDW Standard Deviation 47.8 fL (35.1-46.3); Red Blood Cell Count 3.75 M/mm3 (3.80-5.20); White Blood Cell Count 32.43 K/mm3 (4.00-11.30)
[2022-10-21 05:55] LABS: Magnesium, Blood 2.1 mg/dL (1.6-2.4)
[2022-10-21 05:57] LABS: Albumin, Blood 2.5 g/dL (3.4-5.0); Anion Gap 3 mmol/L (6-16); Blood Urea Nitrogen 25 mg/dL (8-24); Bun/Creatinine Ratio 55.9 (12.0-20.0); CO2, Blood 33 mmol/L (21-32); Calcium, Blood 8.3 mg/dL (8.5-10.1); Chloride, Blood 109 mmol/L (98-108); Creatinine, Blood 0.45 mg/dL (0.40-1.00); Glomerular Filtration Rate 103 (60-); Glucose, Blood 190 mg/dL (70-99); Phosphorus, Blood 2.6 mg/dL (2.5-4.9); Potassium, Blood 4.2 mmol/L (3.5-5.5); Sodium, Blood 145 mmol/L (136-145)
--- NOTE | 2022-10-21 06:11 | NUR ---
SHIFT SUMMARY REMAINS INTUBATED. SEDATION VACATION/WEANING TRIAL DONE THIS AM- SEE RT DOCUMENTATION. PT IS NOW ON SIMV VENTILATION. PROPOFOL BETWEEN 5-50MCG/KG/MIN- NOW AT 40MCG/KG/MIN. FENTANYL CONTINUES AT 75MCG/HR. CONTINUES TO FOLLOW SIMPLE COMMANDS AND NOD/SHAKE HEAD APPROPRIATELY. VSS. NSR, RATE 80s-90s. OG WITH VHP AT GOAL RATE OF 30MLS/HR. NO S/S OF GI INTOLERANCE. PANDEY PATENT AND DRAINING TO GRAVITY. NS INFUSING AT 100MLS/HR. WILL REPORT TO ONCOMING RN WHEN AVAILABLE.
[2022-10-21 06:41] LABS: BAND PERCENT MAN 12 % (0-8); BASOPHILS PERCENT MAN 0 % (0-2); EOSINOPHILS PERCENT MAN 0 % (0-6); LYMPHOCYTES ABSOLUTE MAN 2.27 K/mm3 (0.84-5.20); LYMPHOCYTES PERCENT MAN 7 % (21-46); METAMYELOCYTE ABSOLUTE MAN 0.64 K/mm3 (0.00-0.00); METAMYELOCYTE PERCENT MAN 2 % (0-0); MONOCYTES ABSOLUTE MAN 1.62 K/mm3 (0.16-1.47); MONOCYTES PERCENT MAN 5 % (4-13); MYELOCYTE ABSOLUTE MAN 1.29 K/mm3 (0.00-0.00); MYELOCYTE PERCENT MAN 4 % (0-0); NEUTROPHILS ABSOLUTE MAN 26.59 K/mm3 (1.96-9.15); SEG NEUTROPHILS PERCENT MAN 70 % (41-73); TOTAL CELLS COUNTED 100
--- NOTE | 2022-10-21 09:04 | NUR ---
SBT PT TOLERATED SBT THIS MORNING WELL. PT REMAINED CALM AND COOPERATIVE WITH PROPOFOL ON STANDBY. PT CONTINUES TO HAVE LARGE AMOUNT OF THICK SECRETIONS WITH OCCASIONAL COUGHING FITS. DR REDDY SWITCHED PT BACK TO AC 16, TV 450, PEEP 5, FIO2 35%. PROPOFOL RESTARTED AT 40 MCG/KG/MIN. RT NOTIFIED.
--- NOTE | 2022-10-21 17:35 | NUR ---
SHIFT SUMMARY NO ACUTE CHANGES THIS SHIFT. PT REMAINS INTUBATED AND SEDATED. PT SEDATED WITH PROPOFOL AT 60 MCG/KG/MIN AND FENTANYL CORE BLOWER OPERATOR 75 MCG/HR. VENT SETTINGS AC 16, TV 450, PEEP 5, FIO2 35%. PT AWAKENS TO VERBAL STIMULI AND CARE. PT FOLLOWS COMMANDS APPROPRIATELY AND NODS HEAD YES/NO. PT WITH OCCASIONAL COUGHING FITS AND MODERATE THICK, DEY, SECRETIONS. OGT REMAINS IN PLACE WITH TF INFUSING AT GOAL RATE. CENTRAL LINE TO LEFT SUBCLAVIAN REMAINS IN PLACE. NS INFUSING TKO. PANDEY TEMP PROBE REMAINS IN PLACE WITH LARGE AMOUNT OF CLEAR YELLOW URINE OUTPUT NOTED AFTER LASIX DOSE THIS MORNING. SBW RESTRAINTS REMAIN IN PLACE. VITAL SIGNS STABLE. PT WITH SHORT EPISODES OF TACHYCARDIA WITH COUGHING FITS. PT DAUGHTER AT BEDSIDE THIS EVENING. WILL CONTINUE TO MONITOR AND REPORT OFF TO ONCOMING RN.
--- NOTE | 2022-10-21 20:00 | NUR ---
ASSUMED CARE OF PT AT 1900. REPORT RECEIVED AT BEDSIDE. PT PRESENTS IN BED. INTUBATED. AC 16, Tv 450, FIO2 35%, PEEP 5. PT DOES OPEN HER EYES TO CONTACT. NODS HEAD 'YES' AND 'NO' APPROPRIATELY. IF HER HADS ARE REMOVED FROM RESTRAINTS FOR TURN, SHE WILL REACH FOR HER ETT. PT IN NO APPARENT DISTRESS.
--- NOTE | 2022-10-21 23:28 | NUR ---
PT IS ABLE TO ASSIST SOME WITH TURNS IN BED. VERY CAUTIOUS WHEN PT IS OUT OF RESTRAINTS SECONDARY TO HER REACHING FOR ETT. PROPOFOL AT 60 MCG'S/KG/MIN. IS STILL ABLE TO OPEN EYES TO VERBAL OR TACTILE STIMULI. NO DISTRESS NOTED. WILL CONTINUE TO MONITOR PT. DR REDDY HAD STOPPED IN TO SEE PT THIS EVENING. NO NEW ORDERS RECEIVED.
[2022-10-22 05:04] LABS: Hematocrit 31.8 % (33.0-51.0); Hemoglobin 10.1 g/dL (11.5-16.0); Mean Corpuscular HGB 29.3 pg (26.0-34.0); Mean Corpuscular HGB Conc 31.8 g/dL (31.5-36.5); Mean Corpuscular Volume 92 fL (80-100); Mean Platelet Volume 9.2 fL (9.1-12.4); NRBC ABSOLUTE 0.03 K/mm3 (0.00-0.02); NRBC Auto 0.1 /100 WBC (0.0-0.2); Platelet Count 231 K/mm3 (150-400); RDW Standard Deviation 47.6 fL (35.1-46.3); Red Blood Cell Count 3.45 M/mm3 (3.80-5.20); White Blood Cell Count 23.71 K/mm3 (4.00-11.30)
[2022-10-22 05:30] LABS: Bun/Creatinine Ratio 68.1 (12.0-20.0); Calcium, Blood 8.5 mg/dL (8.5-10.1); Creatinine, Blood 0.43 mg/dL (0.40-1.00); Phosphorus, Blood 2.5 mg/dL (2.5-4.9)
--- NOTE | 2022-10-22 05:51 | NUR ---
PT ON PRESSURE SUPPORT 05/07 WITH 35 PERCENT FIO2. IS ABLE TO MAINTAIN OXYGEN SATURATION > 90 PERCENT. PT NODS HER HEAD 'YES' TO BREATHING BEING EASIER WITH PRESSURE SUPPORT. WILL CONTINUE TO MONITOR PT, AND WILL REPORT OFF TO ONCOMING RN.
[2022-10-22 05:54] LABS: BAND PERCENT MAN 3 % (0-8); BASOPHILS PERCENT MAN 0 % (0-2); EOSINOPHILS ABSOLUTE MAN 0.47 K/mm3 (0.00-0.68); EOSINOPHILS PERCENT MAN 2 % (0-6); LYMPHOCYTES ABSOLUTE MAN 1.65 K/mm3 (0.84-5.20); LYMPHOCYTES PERCENT MAN 7 % (21-46); MONOCYTES ABSOLUTE MAN 0.94 K/mm3 (0.16-1.47); MONOCYTES PERCENT MAN 4 % (4-13); MYELOCYTE ABSOLUTE MAN 1.89 K/mm3 (0.00-0.00); MYELOCYTE PERCENT MAN 8 % (0-0); NEUTROPHILS ABSOLUTE MAN 18.73 K/mm3 (1.96-9.15); SEG NEUTROPHILS PERCENT MAN 76 % (41-73); TOTAL CELLS COUNTED 100
--- NOTE | 2022-10-22 10:42 | NUR ---
MANI HAS BEEN ALERT AND COOPERATIVE ALL MORNING. SHE REMAINS OFF THE PROPOFOL AND IS DOING WELL. SHE CONTINUES WITH A HARSH COUGH UPON DEEP BREATHING, WITH SMALL TO MODERATE RETURN ON ET SUCTIONING OF WHITE/DEY. SHE IS HAVING GOOD RESPONSE TO THE LASIX.
--- NOTE | 2022-10-22 11:28 | NUR ---
TO SEE PT, PT EXAMINED AND FOUND TO BE OKAY TO EXTUBATE. VERBAL EXTUBATE ORDER GIVEN TO RT MAKSIM. PT TOLD WHAT WAS HAPPENING, TUBE FEEDING TURNED OFF, OGT REMOVED AND THEN THE ETT REMOVED BY RT MAKSIM. PT TOLERATED WELL, CONTINUED TO SAY THANK YOU AND THAT SHE IS GRATEFUL. RESTRAINTS REMOVED. CALL LIGHT INSTRUCTIONS GIVEN TO PATIENT WELL INSTRUCTIONS FOR USING THE YANKAUER SUCTION. PT'S EXTUBATION TIME 1115 AM.
--- NOTE | 2022-10-22 12:37 | NUR ---
NOON ASSESSMENT: PT IS ALERT AND COOPERATIVE, SHE IS SLIGHTLY CONFUSED ABOUT CERTAIN DETAILS. SHE KNOWS SHE IS AT THE HOSPITAL AND WAS JUST EXTUBATED, HAS A HARD TIME WITH SPECIFICS. REPEATS HERSELF. SHE IS ON NC, COUGHING WELL, URINE OUTPUT REMAINS GOOD, ASKING ABOUT BEING ABLE TO EAT.
--- NOTE | 2022-10-22 13:45 | NUR ---
PCP office indicates no POLST or AD on file at their office. POLST form on pt's chart is signed by pt but not her provider. It states DNR with limited interventions. She is resting post extubation this am. I will return this afternoon and review pt's POLST with her if she is up for that and complete a new one if desired.
--- NOTE | 2022-10-22 18:16 | NUR ---
MANI EXTUBATED TODAY AT 1115. SHE HAS CONTINUES WITH TKO NS AND FENTANYL AT 75 MCG/HR. SHE DENIES ANY PAIN, STATES SHE IS CURRENTLY 0/10. SHE WAS ABLE TO TAKE IN ICE CHIPS AND APPLESAUCE WITHOUT INCIDENT. SHE HAD ONE INCONTINENT BM TODAY. ARMS REMAIN FLUID FILLED AND FRAGILE. NO REDNESS OR BREAKDOWN NOTED TO BACK OR BUTTOCKS DURING BATH. PT ABLE TO MOVE ALL EXTREMITIES WELL, ABLE TO MAKE FULL SENTENCES. SOME DETAILS SHE GETS CONFUSED ABOUT. NO OTHER CHANGES THIS SHIFT.
--- NOTE | 2022-10-22 19:32 | NUR ---
ASSUMED CARE OF PT AT 1900. REPORT RECEIVED AT BEDSIDE. PT PRESENTS IN BED. WEARING O2 PER NASAL CANNULA AT 3 L/M. THIS BEING SAME RATE SHE USES AT HOME. PT VERY ENGAGING IN REPORT. EXPRESSES APPRECIATION FOR CARE RECEIVED. PT DENIES PAIN AT THIS TIME. NO APPARENT DISTRESS. WILL REVIEW CHART AND PLAN OF CARE FOR THIS PT.
[2022-10-23 06:41] LABS: Hematocrit 35.3 % (33.0-51.0); Hemoglobin 11.3 g/dL (11.5-16.0); Mean Corpuscular HGB 29.9 pg (26.0-34.0); Mean Corpuscular Volume 93 fL (80-100); Mean Platelet Volume 9.6 fL (9.1-12.4); NRBC ABSOLUTE 0.03 K/mm3 (0.00-0.02); NRBC Auto 0.1 /100 WBC (0.0-0.2); Platelet Count 256 K/mm3 (150-400); RDW Coefficient Variation 13.9 % (11.7-14.2); RDW Standard Deviation 47.7 fL (35.1-46.3); Red Blood Cell Count 3.78 M/mm3 (3.80-5.20); White Blood Cell Count 23.41 K/mm3 (4.00-11.30)
[2022-10-23 07:00] LABS: Albumin, Blood 2.6 g/dL (3.4-5.0); Albumin/Globulin Ratio 0.7 (0.8-1.8); Bilirubin, Direct 0.2 mg/dL (0.0-0.3); Bilirubin, Indirect 0.2 mg/dL (0.1-0.7); Bilirubin, Total 0.4 mg/dL (0.1-1.0); Bun/Creatinine Ratio 59.6 (12.0-20.0); Calcium, Blood 8.7 mg/dL (8.5-10.1); Creatinine, Blood 0.4 mg/dL (0.40-1.00); Globulin, Blood 3.5 g/dL (2.2-4.0); Phosphorus, Blood 3.4 mg/dL (2.5-4.9); Potassium, Blood 3.9 mmol/L (3.5-5.5); Total Protein, Blood 6.1 g/dL (6.4-8.2)
[2022-10-23 07:14] LABS: BASOPHILS PERCENT MAN 0 % (0-2); EOSINOPHILS ABSOLUTE MAN 0.23 K/mm3 (0.00-0.68); EOSINOPHILS PERCENT MAN 1 % (0-6); LYMPHOCYTES PERCENT MAN 12 % (21-46); METAMYELOCYTE ABSOLUTE MAN 0.46 K/mm3 (0.00-0.00); METAMYELOCYTE PERCENT MAN 2 % (0-0); MONOCYTES ABSOLUTE MAN 1.17 K/mm3 (0.16-1.47); MONOCYTES PERCENT MAN 5 % (4-13); MYELOCYTE ABSOLUTE MAN 0.93 K/mm3 (0.00-0.00); MYELOCYTE PERCENT MAN 4 % (0-0); NEUTROPHILS ABSOLUTE MAN 17.79 K/mm3 (1.96-9.15); SEG NEUTROPHILS PERCENT MAN 76 % (41-73); TOTAL CELLS COUNTED 100
--- NOTE | 2022-10-23 07:15 | NUR ---
HAVE BEEN ABLE TO WEAN FENTANYL RN RADIOLOGY TO OFF. PT CONTINUES TO DENY PAIN. PT UP TO BEDSIDE COMMODE THIS MORNING AND HAS LARGE BM. PT NEEDS 1 PERSON ASSIST SECONDARY TO WEAKNESS. O2 CONTINUES AT 3 L/M AND PT MAINTAINS > 90 PERCENT SATURATIONS. REPORT GIVEN TO ONCOMING RN.
--- NOTE | 2022-10-23 11:58 | NUR ---
MANI WAS UP TO THE BSC AND THEN TO THE RECLINER. SHE WAS IN THE RECLINER BRIEFLY AND WENT BACK TO THE COMMODE 2 MORE TIMES TO URINATE POST CATHETER REMOVAL. SHE BECAME VERY SHORT OF BREATH AND UNABLE TO FOLLOW SIMPLE COMMANDS, FOR EXAMPLE, BRING YOUR FEET BACK, THEY ARE TOO FAR INFRONT OF THE WALKER. SHE PUT HER FEET FARTHER FORWARD. ONCE BACK TO SITTING ON THE EDGE OF THE BED SHE WAS ABLE TO COMPLETE THE TASKS SHE WAS GIVEN. STATES SHE WOULD LIKE TO TAKE A NAP.
--- NOTE | 2022-10-23 18:35 | NUR ---
MANI HAS BEEN RESTING ON AND OFF TODAY, SHE CONTINUES ON 02 VIA NC @ 3L, SHE HAS BEEN UP TO THE BS, SHE HAS TRIED TO EAT BUT SHE HASN'T LIKED THE FOOD. SHE DOESN'T TAKE IN MUCH FLUIDS, SHE SIPS ON WATER AND ROOT BEER. SHE CONTINUES TO BE CONFUSED AT TIMES BUT APPROPRIATE. SHE IS ABLE TO UTILIZE HER CALL LIGHT AND MAKE HER NEEDS KNOWN. SHE FORGETS WHERE SHE IS AND WHY SHE IS HERE. SHE STATES SHE IS BORED. NOTHING FURTHER TO REPORT, WILL CONTINUE TO TREAT AND REPORT TO NEXT SHIFT WHEN AVAILABLE.
[2022-10-24 04:08] LABS: Hematocrit 35.7 % (33.0-51.0); Hemoglobin 11.5 g/dL (11.5-16.0); Mean Corpuscular HGB 29.8 pg (26.0-34.0); Mean Corpuscular HGB Conc 32.2 g/dL (31.5-36.5); Mean Corpuscular Volume 93 fL (80-100); Mean Platelet Volume 9.2 fL (9.1-12.4); Platelet Count 219 K/mm3 (150-400); RDW Coefficient Variation 13.9 % (11.7-14.2); RDW Standard Deviation 46.6 fL (35.1-46.3); Red Blood Cell Count 3.86 M/mm3 (3.80-5.20); White Blood Cell Count 17.61 K/mm3 (4.00-11.30)
[2022-10-24 04:22] LABS: Albumin, Blood 2.6 g/dL (3.4-5.0); Anion Gap 2 mmol/L (6-16); Blood Urea Nitrogen 20 mg/dL (8-24); Bun/Creatinine Ratio 52.1 (12.0-20.0); CO2, Blood 43 mmol/L (21-32); Calcium, Blood 8.7 mg/dL (8.5-10.1); Chloride, Blood 98 mmol/L (98-108); Creatinine, Blood 0.38 mg/dL (0.40-1.00); Glomerular Filtration Rate 108 (60-); Glucose, Blood 136 mg/dL (70-99); Phosphorus, Blood 4.2 mg/dL (2.5-4.9); Potassium, Blood 3.6 mmol/L (3.5-5.5); Sodium, Blood 143 mmol/L (136-145)
[2022-10-24 04:29] LABS: BAND PERCENT MAN 1 % (0-8); BASOPHILS ABSOLUTE MAN 0.17 K/mm3 (0.00-0.23); BASOPHILS PERCENT MAN 1 % (0-2); EOSINOPHILS PERCENT MAN 0 % (0-6); LYMPHOCYTES ABSOLUTE MAN 2.64 K/mm3 (0.84-5.20); LYMPHOCYTES PERCENT MAN 15 % (21-46); METAMYELOCYTE ABSOLUTE MAN 0.17 K/mm3 (0.00-0.00); METAMYELOCYTE PERCENT MAN 1 % (0-0); MONOCYTES ABSOLUTE MAN 1.05 K/mm3 (0.16-1.47); MONOCYTES PERCENT MAN 6 % (4-13); MYELOCYTE ABSOLUTE MAN 0.17 K/mm3 (0.00-0.00); MYELOCYTE PERCENT MAN 1 % (0-0); NEUTROPHILS ABSOLUTE MAN 13.38 K/mm3 (1.96-9.15); SEG NEUTROPHILS PERCENT MAN 75 % (41-73); TOTAL CELLS COUNTED 100
--- NOTE | 2022-10-24 06:06 | NUR ---
SHIFT SUMMERY NO ACUTE CHANGES OVERNIGHT. VSS
--- NOTE | 2022-10-24 18:39 | NUR ---
SHIFT SUMMARY: Pt very pleasant. She was up to commode several times throughout the day. PRN nathen given this AM for headache. She complained of headache again this evening for which the doctor ordered hydralazine. Daughter at bedside for some time this afternoon. Pt requested to go home several times today. She states that she lives at home with her daughter who is a BUSINESS ANALYTICS SPECIALIST; pt has a hospital bed at home with oxygen set up.
--- NOTE | 2022-10-24 23:01 | NUR ---
PT TRANSFERRED TO MEDICAL FLOOR 325 AT 2300 VIA BED W/OXYGEN INTACT VIA NC AT 3L, BELONGINGS AND CHART.
--- NOTE | 2022-10-25 04:02 | NUR ---
PATIENT ARRIVED ON UNIT AROUND 2300. AOX4. 1 PERSON ASSIST TO COMMODE. 3 L O2 WHICH IS PATIENT'S BASELINE. PATIENT DENIED ANY PAIN OR DISCOMFORT. CALLS APPROPRIATELY. PATIENT REPORTS FEELING IN VERY GOOD CONDITION AND BELIEVES SHE WILL BE READY TO GO HOME SOON. BRIEFLY DISCUSSED INTENT TO BE DISCHARGED HOME VS BEING DISCHARGED TO SNF. PATIENT REMAINS INSISTENT THAT SHE WANTS TO BE DISCHARGED HOME AND HER DAUGHTER WILL HELP TO CARE FOR HER. CALL LIGHT LEFT WITHIN REACH.
[2022-10-25 06:59] LABS: BASOPHILS ABSOLUTE AUTO 0.06 K/mm3 (0.00-0.23); BASOPHILS PERCENT AUTO 0 % (0-2); EOSINOPHILS ABSOLUTE AUTO 0.29 K/mm3 (0.00-0.68); EOSINOPHILS PERCENT AUTO 2 % (0-6); Hematocrit 38.1 % (33.0-51.0); Hemoglobin 12.4 g/dL (11.5-16.0); IMMATURE GRAN ABSOLUTE AUTO 0.71 K/mm3 (0.00-0.10); IMMATURE GRAN PERCENT AUTO 4 % (0-1); LYMPHOCYTES ABSOLUTE AUTO 3.68 K/mm3 (0.84-5.20); LYMPHOCYTES PERCENT AUTO 21 % (21-46); MONOCYTES ABSOLUTE AUTO 1.83 K/mm3 (0.16-1.47); MONOCYTES PERCENT AUTO 10 % (4-13); Mean Corpuscular HGB 29.8 pg (26.0-34.0); Mean Corpuscular HGB Conc 32.5 g/dL (31.5-36.5); Mean Corpuscular Volume 92 fL (80-100); Mean Platelet Volume 9.3 fL (9.1-12.4); NEUTROPHILS ABSOLUTE AUTO 11.16 K/mm3 (1.96-9.15); NEUTROPHILS PERCENT AUTO 63 % (41-73); Platelet Count 237 K/mm3 (150-400); RDW Coefficient Variation 13.9 % (11.7-14.2); RDW Standard Deviation 46.6 fL (35.1-46.3); Red Blood Cell Count 4.16 M/mm3 (3.80-5.20); White Blood Cell Count 17.73 K/mm3 (4.00-11.30)
[2022-10-25 07:08] LABS: Albumin, Blood 2.8 g/dL (3.4-5.0); Anion Gap 4 mmol/L (6-16); Blood Urea Nitrogen 21 mg/dL (8-24); Bun/Creatinine Ratio 45.4 (12.0-20.0); CO2, Blood 40 mmol/L (21-32); Calcium, Blood 8.9 mg/dL (8.5-10.1); Chloride, Blood 100 mmol/L (98-108); Creatinine, Blood 0.46 mg/dL (0.40-1.00); Glomerular Filtration Rate 103 (60-); Glucose, Blood 116 mg/dL (70-99); Phosphorus, Blood 3.3 mg/dL (2.5-4.9); Potassium, Blood 2.7 mmol/L (3.5-5.5); Sodium, Blood 144 mmol/L (136-145)
--- NOTE | 2022-10-25 17:47 | NUR ---
PATIENT A/OX4, UP WITH FWW AND 1 ASSIST TO RESTROOM. VSS, 3LO2 NOW AND AT BASELINE. LUNGS WITH WHEEZES, RECEIVING RT TREATMENTS. DENIES ANY PAIN THIS SHIFT. 20G IV TO R FA WNL AND SL. POTASSIUM 2.7 THIS AM, REPLACED AND IS NOW 4.0. PATIENT LIVES WITH DAUGHTER AND PLANS TO DC HOME WHEN STABLE. COOPERATIVE WITH CARE, CALLS APPROPRIATELY FOR ASSISTANCE.
--- NOTE | 2022-10-25 19:40 | NUR ---
AWAKE. O2 AT 3.5L/MIN PER NC. HOB AT ABOUT 50 DEGREES. DENIES PAIN AND LOSS OF FEELING. CALL LIGHT IN REACH
--- NOTE | 2022-10-26 04:50 | NUR ---
SERVICE SHOP FOREMAN SUMMARY VSS. CBG'S MONITORED. ALERT TO QUESTIONS ASKED. HOB ELEVATED AND O2 PER NC AT 3.5L/MIN. DRESSING OF LEFT UPPER CHEST INTACT. NO NOTED DRAINAGE. ORIENTED TO QUESTIONS ASKED. VOICED PAIN LEVEL OK. SOME NEUROPATHY. HAS BEEN RESTING QUIETLY WITH FEW INTERRUPTIONS NOTED. CALL LIGHT IN REACH. WILL CONTINUE TO MONITOR. NO NOTED S/S ACUTE DISTRESS AT THIS TIME.
[2022-10-26 09:00] LABS: BASOPHILS ABSOLUTE AUTO 0.05 K/mm3 (0.00-0.23); BASOPHILS PERCENT AUTO 0 % (0-2); EOSINOPHILS ABSOLUTE AUTO 0.24 K/mm3 (0.00-0.68); EOSINOPHILS PERCENT AUTO 2 % (0-6); Hematocrit 39.6 % (33.0-51.0); Hemoglobin 12.6 g/dL (11.5-16.0); IMMATURE GRAN ABSOLUTE AUTO 0.21 K/mm3 (0.00-0.10); IMMATURE GRAN PERCENT AUTO 2 % (0-1); LYMPHOCYTES PERCENT AUTO 23 % (21-46); MONOCYTES ABSOLUTE AUTO 1.25 K/mm3 (0.16-1.47); MONOCYTES PERCENT AUTO 11 % (4-13); Mean Corpuscular HGB 29.6 pg (26.0-34.0); Mean Corpuscular HGB Conc 31.8 g/dL (31.5-36.5); Mean Corpuscular Volume 93 fL (80-100); Mean Platelet Volume 9.5 fL (9.1-12.4); NEUTROPHILS ABSOLUTE AUTO 7.18 K/mm3 (1.96-9.15); NEUTROPHILS PERCENT AUTO 62 % (41-73); Platelet Count 230 K/mm3 (150-400); RDW Coefficient Variation 14.2 % (11.7-14.2); RDW Standard Deviation 47.6 fL (35.1-46.3); Red Blood Cell Count 4.26 M/mm3 (3.80-5.20); White Blood Cell Count 11.63 K/mm3 (4.00-11.30)
[2022-10-26 09:20] LABS: Bun/Creatinine Ratio 39.9 (12.0-20.0); Creatinine, Blood 0.45 mg/dL (0.40-1.00); Potassium, Blood 3.5 mmol/L (3.5-5.5)
[2022-10-26] MEDS ORDERED: FURO20 PO (12:30)
[2022-10-26] MEDS ORDERED: Prednisone10 MG PO (12:36)
[2022-10-26] MEDS ORDERED: B-1100 M1 PO (12:37)
--- NOTE | 2022-10-26 15:45 | NUR ---
DISCHARGE-1500 PT BROUGHT DOWN IN A WC BY THIS RN ON 3L O2. DAUGHTER PICKED UP PT WITH PORTABLE O2 TANK. PT HAS ALL BELONGINGS. PT SIGNED ALL PAPERWORK AND RN REVIEWED MEDS WITH PT AND DAUGHTER.
== END 2022-10-26 14:37 | disposition home health service (06) | DRG 870 ==
LOC: ER 13:59 → ICUW 18:52 → PCU 18:52 → ICUW 18:58 → MEDS 10-24 23:12
PROVIDERS: Emergency Medicine; Family Medicine; Family Medicine Adult Medicine; Internal Medicine Critical Care Medicine; Student in an Organized Health Care Education/Training Program; ADMIT Internal Medicine
PROC: 02HV33Z Insertion of Infusion Device into Superior Vena Cava, Percutaneous Approach (ICD-10-PCS; principal; 2022-10-17)
PROC: 3E033XZ Introduction of Vasopressor into Peripheral Vein, Percutaneous Approach (ICD-10-PCS; 2022-10-17)
PROC: 3E03329 Introduction of Other Anti-infective into Peripheral Vein, Percutaneous Approach (ICD-10-PCS; 2022-10-17)
PROC: 5A1955Z Respiratory Ventilation, Greater than 96 Consecutive Hours (ICD-10-PCS; 2022-10-17)
PROC: 0BH17EZ Insertion of Endotracheal Airway into Trachea, Via Natural or Artificial Opening (ICD-10-PCS; 2022-10-17)
DX: A41.9 Sepsis, unspecified organism (principal); I50.31 Acute diastolic (congestive) heart failure; R65.21 Severe sepsis with septic shock; J96.21 Acute and chronic respiratory failure with hypoxia; J69.0 Pneumonitis due to inhalation of food and vomit; J44.1 Chronic obstructive pulmonary disease with (acute) exacerbation; J44.0 Chronic obstructive pulmonary disease with (acute) lower respiratory infection; F31.9 Bipolar disorder, unspecified; F11.10 Opioid abuse, uncomplicated; E87.6 Hypokalemia; T50.2X5A Adverse effect of carbonic-anhydrase inhibitors, benzothiadiazides and other diuretics, initial encounter; K21.9 Gastro-esophageal reflux disease without esophagitis; I11.0 Hypertensive heart disease with heart failure; E83.39 Other disorders of phosphorus metabolism; L21.0 Seborrhea capitis; K59.00 Constipation, unspecified; J98.01 Acute bronchospasm; E11.9 Type 2 diabetes mellitus without complications; G89.4 Chronic pain syndrome; M54.9 Dorsalgia, unspecified; F17.210 Nicotine dependence, cigarettes, uncomplicated; Z20.822 Contact with and (suspected) exposure to COVID-19; Z88.8 Allergy status to other drugs, medicaments and biological substances; Z79.899 Other long term (current) drug therapy; Z79.82 Long term (current) use of aspirin; Z79.84 Long term (current) use of oral hypoglycemic drugs; Z79.811 Long term (current) use of aromatase inhibitors; Z79.51 Long term (current) use of inhaled steroids; Z85.41 Personal history of malignant neoplasm of cervix uteri; Z90.49 Acquired absence of other specified parts of digestive tract; Z90.710 Acquired absence of both cervix and uterus; Z90.722 Acquired absence of ovaries, bilateral; Z98.890 Other specified postprocedural states
CPT/HCPCS: 0241U; 31500; 36415; 36556; 36600; 51702; 70450; 71045; 80047; 80048; 80053; 80069; 81001; 82248; 82803; 82947; 83036; 83605; 83735; 83880; 84100; 84132; 84484; 85014; 85025; 87040; 87070; 87086; 87205; 93005; 93010; 93306; 94002; 94003; 94640; 94664; 94760; 96365-59; 96366-59; 96375-59; 97162; 97166; 97530; 97535; 98960; 99291-25; 99407; A9270; C1751; C9113; J0360; J0696; J1650; J1815; J1940; J1956; J2250; J2704; J2920; J3010; J3480; J7030; J7050; J7060; J7512; P9047

== ENCOUNTER 2022-11-26 17:18 | Inpatient (IN) | payer OTHER ==
[~2022-11-26] VITALS: Ht 160 cm; Wt 62.7 kg
[~2022-11-26 17:18] MED LIST changes: +B-1100 M1 PO; +Desyrel150 MG PO; +FURO20 PO; +Hair, Skin & N1 EACH PO; +METO50 PO; +PEPCID40 MG PO; +PROBIOTIC1 EA13 PO; +Prednisone10 MG PO; +QUET200 PO; -QUETIAPINE FUM400 MG PO
[2022-11-26] MEDS ORDERED: AMLO5 PO (17:34)
[2022-11-26 17:37] LABS: BASOPHILS ABSOLUTE AUTO 0.06 K/mm3 (0.00-0.23); BASOPHILS PERCENT AUTO 1 % (0-2); EOSINOPHILS ABSOLUTE AUTO 0.08 K/mm3 (0.00-0.68); EOSINOPHILS PERCENT AUTO 1 % (0-6); IMMATURE GRAN ABSOLUTE AUTO 0.34 K/mm3 (0.00-0.10); IMMATURE GRAN PERCENT AUTO 3 % (0-1); LYMPHOCYTES ABSOLUTE AUTO 1.57 K/mm3 (0.84-5.20); LYMPHOCYTES PERCENT AUTO 14 % (21-46); MONOCYTES ABSOLUTE AUTO 1.75 K/mm3 (0.16-1.47); MONOCYTES PERCENT AUTO 16 % (4-13); Mean Corpuscular HGB 29.6 pg (26.0-34.0); Mean Corpuscular HGB Conc 32.4 g/dL (31.5-36.5); Mean Corpuscular Volume 91 fL (80-100); Mean Platelet Volume 9.7 fL (9.1-12.4); NEUTROPHILS ABSOLUTE AUTO 7.32 K/mm3 (1.96-9.15); NEUTROPHILS PERCENT AUTO 66 % (41-73); Platelet Count 307 K/mm3 (150-400); RDW Coefficient Variation 13.5 % (11.7-14.2); RDW Standard Deviation 45.7 fL (35.1-46.3); Red Blood Cell Count 4.05 M/mm3 (3.80-5.20); White Blood Cell Count 11.12 K/mm3 (4.00-11.30)
[2022-11-26] MEDS ORDERED: PEPCID40 MG PO (17:37)
[2022-11-26] MEDS ORDERED: HYDROCODONE-AC1 EAC7 PO (17:38)
[2022-11-26] MEDS ORDERED: TRELEGY ELLIPT1 EACH (17:38)
[2022-11-26 17:48] LABS: Albumin, Blood 2.1 g/dL (3.4-5.0); Albumin/Globulin Ratio 0.5 (0.8-1.8); Bilirubin, Total 0.6 mg/dL (0.1-1.0); Calcium, Blood 9.8 mg/dL (8.5-10.1); Creatinine, Blood 0.52 mg/dL (0.40-1.00); Globulin, Blood 4.3 g/dL (2.2-4.0); Potassium, Blood 4.7 mmol/L (3.5-5.5); Total Protein, Blood 6.4 g/dL (6.4-8.2)
[2022-11-26 18:44] LABS: Influenza A, PCR NEGATIVE (NEGATIVE); Influenza B, PCR NEGATIVE (NEGATIVE); Resp Syncytial Virus, PCR NEGATIVE (NEGATIVE); SARS-Cov-2 (COVID-19) PCR, MMC NEGATIVE (NEGATIVE)
[2022-11-26 19:31] LABS: PCO2 Arterial 71.1 mmHg (35-45); PO2 Arterial 66.8 mmHg (80-100); pH Blood Arterial 7.29 (7.35-7.45)
[2022-11-26 20:37] LABS: Source, Urine Straight Cath
[2022-11-26 20:40] LABS: Bilirubin, Urine Neg (Neg); Blood, Urine 1+ (Neg); Glucose Qualitative, Urine Neg (Neg); Ketones, Urine 1+ (Neg); Leukocyte Esterase, Urine 1+ (Neg); Nitrite, Urine Pos (Neg); Protein, Urine 3+ (Neg); Specific Gravity, Urine 1.025 (1.003-1.022); Urobilinogen, Urine 1+ (Normal)
[2022-11-26 21:09] LABS: Appearance, Urine Hazy (Clear); Color, Urine Yellow (P-Yellow)
[2022-11-26 21:14] LABS: Amorphous Mod (0-Heavy); Bacteria Mod /hpf; Mucus Light (0-Heavy); Red Blood Cells, Urine 0-2 /hpf (0-2); Squamous Epithelial Cells Rare /hpf (Few)
--- NOTE | 2022-11-26 21:40 | NUR ---
CODE STATUS CLARIFICATION: SPOKE WITH MANI THE PT AND SUNNY THE STEP DAUGHTER ABOUT CODE STATUS. PT WISHES TO HAVE EVERYTHING DONE, JUST NOTHING JAIL. OK TO INTUBATE, DEFIBRILLATE, MEDICATE AND TREAT A FULL CODE. THERE IS A POLST FORM THAT READS DNR; BUT PT WANTS EVERYTHING DONE, JUST NOT PSYCH THERAPIST.
[2022-11-27 01:19] LABS: BASOPHILS ABSOLUTE AUTO 0.04 K/mm3 (0.00-0.23); BASOPHILS PERCENT AUTO 0 % (0-2); EOSINOPHILS ABSOLUTE AUTO 0.05 K/mm3 (0.00-0.68); EOSINOPHILS PERCENT AUTO 1 % (0-6); Hematocrit 32.6 % (33.0-51.0); Hemoglobin 10.4 g/dL (11.5-16.0); IMMATURE GRAN ABSOLUTE AUTO 0.23 K/mm3 (0.00-0.10); IMMATURE GRAN PERCENT AUTO 3 % (0-1); LYMPHOCYTES ABSOLUTE AUTO 0.52 K/mm3 (0.84-5.20); LYMPHOCYTES PERCENT AUTO 6 % (21-46); MONOCYTES ABSOLUTE AUTO 0.67 K/mm3 (0.16-1.47); MONOCYTES PERCENT AUTO 7 % (4-13); Mean Corpuscular HGB 29.2 pg (26.0-34.0); Mean Corpuscular HGB Conc 31.9 g/dL (31.5-36.5); Mean Corpuscular Volume 92 fL (80-100); Mean Platelet Volume 9.4 fL (9.1-12.4); NEUTROPHILS ABSOLUTE AUTO 7.58 K/mm3 (1.96-9.15); NEUTROPHILS PERCENT AUTO 83 % (41-73); Platelet Count 304 K/mm3 (150-400); RDW Coefficient Variation 13.4 % (11.7-14.2); RDW Standard Deviation 45.6 fL (35.1-46.3); Red Blood Cell Count 3.56 M/mm3 (3.80-5.20); White Blood Cell Count 9.09 K/mm3 (4.00-11.30)
[2022-11-27 02:06] LABS: Albumin, Blood 2.7 g/dL (3.4-5.0); Albumin/Globulin Ratio 0.7 (0.8-1.8); Bilirubin, Total 0.2 mg/dL (0.1-1.0); Bun/Creatinine Ratio 91.3 (12.0-20.0); Calcium, Blood 9.2 mg/dL (8.5-10.1); Creatinine, Blood 0.48 mg/dL (0.40-1.00); Globulin, Blood 3.7 g/dL (2.2-4.0); Potassium, Blood 4.1 mmol/L (3.5-5.5); Total Protein, Blood 6.4 g/dL (6.4-8.2)
[2022-11-27 03:58] LABS: Base Excess Venous 9.6 mmol/L; Bicarbonate Venous 31.5 mmol/L (24.0-30.0); PCO2 Venous 67.1 mmHg (38-42); pH Blood Venous 7.33 (7.34-7.37)
--- NOTE | 2022-11-27 05:36 | NUR ---
SHIFT SUMMARY: Patient arrived from ED around 2100 last evening in stable condition on BIPAP. Respiratory rate has been consistently high, in the 30s, and lung sounds are extremely diminished and somewhat wheezy. Due to respiratory difficulty and BIPAP dependence, I was unable to complete all of the admission history. Patient slept through the night comfortably with the BIPAP mask on.
--- NOTE | 2022-11-27 10:21 | NUR ---
CARE OF PT ASSUMED AT 0700. PT SLEEPING THIS AM ON BIPAP; TOLERATING BIPAP WELL. SETTINGS 16/10, FIO2 40%. PT'S RATE 30'S. LUNGS TIGHT WITH INSP/EXP WHEEZES T/O. BIPAP REMOVED FOR ASSESSMENT/ORAL CARE/BREAK. PT ORIENTED TO SELF, ASKED WHERE SHE WAS AT SEVERAL TIMES. VERY WEAK AND SOB. PT PLACED ON 4L O2 VIA N/C, WITHIN 1-2MIN SATS DROPPED TO 82% AND PT BECAME MORE DYSPNEIC. BIPAP REPLACED. DR HECTOR IN TO SEE PT AND GIVEN UPDATE. PO MEDS HELD D/T RESP STATUS.
--- NOTE | 2022-11-27 16:32 | NUR ---
BIPAP REMOVED FOR BREAK. PT PLACED ON 5L INITIALLY, AND IS NOW AT 4L VIA N/C. SATS 94%. WORK OF BREATHING IMPROVED FROM THIS AM. LUNGS COARSE/RHONCHI TO UPPER LOBES, SCATTERED WHEEZING PRESENT BUT IMPROVED FROM THIS AM. PT ABLE TO TAKE SIPS OF WATER SAFELY. COUGH IS PRODUCTIVE OF LARGE AMTS OF THICK YELLOW SPUTUM.
--- NOTE | 2022-11-27 17:09 | NUR ---
PT WITH TACHYPNEA AND DYSPNEA, PT DIAPHORETIC, HR SLIGHTLY ELEVATED, O2 WAS TITRATED UP TO 6L. ABLE TO SEND THICK DARK YELLOW SPUTUM SAMPLE. PT PLACED BACK ON BIPAP, RT CALLED FOR BREATHING TREATMENT. PT WAS AWAKE DURING BREAK, CALM, COPPERATIVE, PLEASANT, BUT HAD A DIFFICULT TIME FOLLOWING SIMPLE INSTRUCTIONS; SLIGHTLY CONFUSED.
--- NOTE | 2022-11-27 19:57 | NUR ---
ASSUMED CARE. AOX2, ABLE TO STATES SELF, PLACE ONLY. THOUGHT IT WAS TUESDAY AND DID NOT KNOW THE MONTH. WAS ABLE TO FOLLOW SIMPLE COMMANDS. STATES MOUTH DRY, GAVE MOUTH SWAB. LS COARSE WITH SOME WHEEZES, BIPAP 14/10 WITH TV RANGING 350-400, RESP MID 20'S. SMALL SORE DEVELOPING ON BRIDGE OF NOSE, GEL PAD IS IN PLACE. HR SINUS IN THE 90'S. DENIES PAIN OR DISCOMFORT. PANDEY PATENT AND DRAINING.
--- NOTE | 2022-11-27 20:20 | NUR ---
PT PLACED ON 6L NC SATS RANGING 97-98. THEN TURNED HER DOWN TO 5L. COUGH IS MOIST AND PRODUCTIVE AT TIMES.
--- NOTE | 2022-11-28 00:20 | NUR ---
PT TOLERATED NC AT 6L FOR ALMOST 3 HOURS BEFORE RESP INCREASED TO ABOVE 30 AND BIPAP WAS NEEDED TO BE PLACED. PT WAS ABLE TO TAKE PM MEDS WHICH HAS MADE HER VERY DROWSY.
--- NOTE | 2022-11-28 02:38 | NUR ---
PT WOKE UP VERY CONFUSED. STATING "WHY AM I HERE" "WHY DO I STILL HAVE A BODY" "IM NOT ". COMPLETE CONFUSION THINKING SHE HAD LAST NIGHT AND LEFT HER BODY. RE-ORIENTION WAS PROVIDED, SHE VERBALIZED UNDERSTANDING. BIPAP PLACED BACK ON AND SHE FELL RIGHT BACK TO SLEEP.
[2022-11-28 03:49] LABS: Hemoglobin 11.3 g/dL (11.5-16.0); Mean Corpuscular HGB 29.1 pg (26.0-34.0); Mean Corpuscular HGB Conc 31.4 g/dL (31.5-36.5); Mean Corpuscular Volume 93 fL (80-100); Mean Platelet Volume 9.8 fL (9.1-12.4); Platelet Count 303 K/mm3 (150-400); RDW Coefficient Variation 13.3 % (11.7-14.2); RDW Standard Deviation 45.3 fL (35.1-46.3); Red Blood Cell Count 3.88 M/mm3 (3.80-5.20); White Blood Cell Count 16.31 K/mm3 (4.00-11.30)
[2022-11-28 04:09] LABS: Bun/Creatinine Ratio 101.9 (12.0-20.0); Calcium, Blood 9.9 mg/dL (8.5-10.1); Creatinine, Blood 0.47 mg/dL (0.40-1.00); Potassium, Blood 4.7 mmol/L (3.5-5.5)
--- NOTE | 2022-11-28 04:44 | NUR ---
SPOKE TO DR. GONZALEZ REGARDING ELEVATION IN WBC AND HIGH PROCALCITONIN. NO NEW ORDERS, STATES JUST KEEP AN EYE ON IT FOR NOW.
--- NOTE | 2022-11-28 05:55 | NUR ---
SHIFT SUMMARY: PT GOT MORE CONFUSED THE NIGHT WENT ON AND MEDS SET IN. WAS EASILY REORIENTED BUT IS FORGETFUL AND UNABLE TO REMEMBER WHAT IS SAID. LUNG SOUNDS CONTINUE TO BE COARSE WITH OCCATIONAL INSP/EXP WHEEZES. COUGH OCCATIONALLY IS PRODUCTIVE WITH THICK YELLOW SPUTUM. TOELRATED BEING OFF BIPAP FOR 3 HOURS MAINTAINING SATS ON 5L UNTIL RESP SUSTAINED ABOVE 30 AT WHICH SHE WAS PLACED BACK ON BIPAP 14/10. RT LATER INCREASED SETTINGS TO 16/10 DUE TO LOW TITAL VOLUMES. LABS SHOWS INCREASE IN WBC TO 16.31 AND PROCALCITONIN OF 0.13. VALUES CALLED INTO DR. GONZALEZ WITH NO ORDERS TO FOLLOW.
--- NOTE | 2022-11-28 09:15 | NUR ---
CARE OF PT ASSUMED AT 0700. PT SLEEPING IN BED W BIPAP OFF. SATS 95% ON 5L O2. PT ORIENTED TO SELF AND PLACE, SOME CONFUSED CONVERSATION, VERY FORGETFUL. CALM AND COOPEPRATIVE. PT DENIES SOB WORSE THAN BASELINE. PRODUCTIVE COUGH. SPUTUM WAS SENT YESTERDAY. FOOD OFFERED, PT DECLINED, BUT IS TAKING IN GOOD AMT OF WATER. ABLE TO GIVE PO MEDS THIS AM. DR HECTOR IN TO SEE PT. POSSIBLE STATUS CHANGE TODAY.
--- NOTE | 2022-11-28 18:22 | NUR ---
PT PCU STATUS. PT HAS NOT NEEDED BIPAP TODAY, SATS >90% ON 3L O2 VIA N/C, WHICH IS HER BASELINE HOME O2 AMT. POOR APPETITE, DECLINED ALL MEALS BUT IS DRINKING SOME FLUIDS. CHAIR OFFERED, PT DECLINED THIS WELL. PT DECLINED A TURN, BUT DID FOR THE MOST PART ALLOW US TO HELP HER TURN Q2, SHE ALSO ALLOWED A BEDBATH. PT MILDLY CONFUSED TODAY. CONTINUES TO COUGH UP MODERATE TO LARGE AMT OF VERY THICK YELLOW SPUTUM.
--- NOTE | 2022-11-29 01:49 | NUR ---
PT'S BLOOD SUGAR DROPPED TO THE 83 THEN RECHECK IN 1 HOUR IT WAS 77. SHE HAS NOT EATEN ALL DAY. GOT HER TO TAKE HALF OF STRING CHEESE, A FEW SIPS OF ENSURE AND 4 BITES OF YOGURT BEFORE SHE SAID SHE WAS TO FULL AND DID NOT WANT MORE TO EAT.
[2022-11-29 03:43] LABS: Hematocrit 38.4 % (33.0-51.0); Hemoglobin 12.2 g/dL (11.5-16.0)
[2022-11-29 04:03] LABS: Bun/Creatinine Ratio 93.5 (12.0-20.0); Calcium, Blood 10.3 mg/dL (8.5-10.1); Creatinine, Blood 0.43 mg/dL (0.40-1.00); Potassium, Blood 3.6 mmol/L (3.5-5.5)
--- NOTE | 2022-11-29 05:59 | NUR ---
SHIFT SUMMARY: MANI REMAINS SLIGHTLY CONFUSED, KNOWS SELF AND PLACE ONLY. FTT REFUSING TO EAT OR TURN. SHE TYPICALLY DOES NOT WANT HER BLOOD SUGAR CHECKED OR WANT TO BE BUGGED. HAVE BEEN ABLE TO TALK HER INTO THESE THINGS SO FAR. BLOOD SUGAR DROPPED DOWN INTO THE 70'S AT WHICH WAS ABLE TO TALK HER INTO A FEW BITES OF CHEESE, 3 BITES OF YOGURT AND 3 SIPS OF ENSURE BEFORE SHE SAID SHE WAS FULL AND REFUSED IT. TRIED THE REST OF NIGHT TO GET HER TO DRINK OR EAT SOMETHING BUT SHE CONTINUED TO REFUSE. DID DRINK WATER THIS AM. VS WNL. REMAINED ON 3L NC ALL NIGHT, NO BIPAP NEEDED. COUGH VERY PRODUCTIVE THICK STICKY YELLOW. PANDEY OUTPUT 500, DARK MARANDA. NO BM.
--- NOTE | 2022-11-29 12:34 | NUR ---
SHIFT SUMMARY: ASSUMED CARE OF PT THIS AM APPROX 0725 AFTER RECEIVING REPORT FROM NOÉ ADAMS. PT ALERT MAJORITY OF THIS AM W/SHORT NAPS, ORIENTED TO SELF AND PLACE, SOME SITUATIONAL, FORGETFUL AT TIMES. PT C/O FEELING HOT, FAN PLACED IN FRONT OF PT, BLANKETS REMOVED EXCEPT FOR SHEET, TEMP VIA PANDEY IS CURRENTLY 99.2. PT AT BASELINE O2 OF 3 L/MIN NC, O2 SATS >92%, COUGH PRODUCTIVE OF THICK, YELLOW SPUTUM. SR ON MONITOR, RATE 80s-90s. PT HAS BEEN DECLINING MEALS. PT EDUCATED ABOUT NEED TO MAINTAIN NUTRIENTS/BLOOD SUGAR IN BODY, AGREES TO AND DRINKS AN ENSURE CLEAR WITH AM MEDS, DENIES LUNCH TRAY. INDWELLING PANDEY PATENT, DRAINING TO GRAVITY, 800ML OUT THUS FAR. PT REPOSITIONED ALLOWED. PT NOW MEDICAL STATUS.
--- NOTE | 2022-11-29 13:30 | NUR ---
UPDATE: PT RECEIVES NEW BED ASSIGNMENT IN MEDICAL DEPT. REPORT GIVEN TO NOÉ MOLINA IN MEDICAL DEPT TO RECEIVE PT.
--- NOTE | 2022-11-29 14:08 | NUR ---
TRANSFER TO 331 PT REPORT RECEIVED FROM SUNNY UMANZOR. PT ARRIVED VIA BED AWAKE AND ALERT. PT TRANSFERED TO NEW BED WITH SLIDER SHEET AND 4 ASSIST. TOLERATED WELL. ORIENTED HER TO ROOM AND CALL LIGHT. BED ALARM ON. ENCOURAGED TO CALL FOR ASSISTANCE. 3L O2. CONTINUE POC.
--- NOTE | 2022-11-29 16:16 | NUR ---
Care Conference: Dr. Robb spoke with pt this am, and she indicated she wishes to be comfortable. Spoke to her step-daughter Alanna who lives with pt and is her primary Caregiver. Alanna states this is not a suprise to her, and that Marybel's health has continued to decline since her . Alanna reports she is pt's primary CG, and julito remain her CG. Both are interested in learning more about hospice services.
--- NOTE | 2022-11-29 16:17 | NUR ---
EVENING NOTE PT RESTING QUIETLY AFTER MOVE FROM ICU 2. SHE NEEDS ENCOURAGEMENT TO MOVE/TURN. SHE WEAKLY HELPS TO TURN SIDE TO SIDE. LUNGS COARSE T/O. 3L HUMIDIFIED O2 VIA N/C. SHE HAS A DEEP, CONGESTED PRODUCTIVE COUGH OF DEY/YELLOW THICK SPUTUM. SHE SPITS THE SPUTUM INTO AN EMESIS BAG WITH KLEENEX. ENCOURAGED WATER. SHE LIKES ICE WATER. POOR INTAKE. IT WAS REPORTED THAT SHE HAS ONLY DRANK AN ENSURE TODAY. PALATIVE CARE CAME TO SEE HER. CONTINUE POC.
--- NOTE | 2022-11-30 03:53 | NUR ---
SHIFT MOSTLY UNREMARKABLE. PT WAS ABLE TO SPORADICALLY SLEEP OVER THE COURSE OF THE SHIFT BUT OFTEN WAKES CONFUSED, NEEDING REORIENTED. SOMEWHAT IRRITABLE MOOD BUT MOSTLY COOPERATIVE WITH CARE. CALL LIGHT LEFT WITHIN REACH.
--- NOTE | 2022-11-30 17:32 | NUR ---
SHIFT SUMMARY PT A&OX1-ABLE TO RECALL BDAY, CAN NOT RECALL LAST NAME. MOOD UP AND DOWN T/O SHIFT. PT PARANOID EPPISODES T/O SHIFT. FAMILY IN TO SEE PT AND PT PARANOID TELLING THEM TO LEAVE. PT PULLED PANDEY AND BOTH IVS THIS SHIFT. PULLS OF NC MULTIPLE TIMES T/O SHIFT-CONT. PULSE OX IN PLACE. ATTEMPTING TO LEAVE THINKS STAFF "IS TRYING TO KILL HER" PRAYING, GRABS STAFF ARMS-RAMÓN IN PLACE AT THIS TIME FOR SAFETY. PT BECAME CLAMMY T/O SHIFT, NOTIFIED, VSS, GLUCOSE 143. UP TO BSC 2X. EATING MIN. AMOUNTS. INCREASING CONFUSION, BLOWS INTO STRAW WHEN PROMPTED TO TAKE A DRINK. COUGHING UP THICK YELLOW SPUTUM. 4L @ THIS TIME, 5-6L NEEDED TO RECOMPENSATE FOR PT REMOVING 02-FOUND PT IN 80'S AND INCREASED CONFUSION. CALL LIGHT W/IN REACH.
--- NOTE | 2022-11-30 18:03 | NUR ---
Met with pt's family and Dr. Robb regarding pt's code status, along with care planning. Pt's step-daughter Alanna is on board with changing pt's code to DNR, and taking her home with hospice. She plans to remain her primary caregiver, and will be taking her home tomorrow, with hospice to admit pt. Pt remains confused and paranoid about what the "people coming into her room are trying to do" to her. Hopeful that returning home will help, as according to Alanna, pt has been much of a recluse for years, and this hospital stay has been hard on her. Dr. Robb to place comfort care orders tonight as requested by family, with hospice referral being placed tomorrow.
--- NOTE | 2022-12-01 06:00 | NUR ---
END OF SHIFT NURSING REPORT - PM Mrs. Lunsford is a 72 y/o female admitted for acute respirtory failure with hypoxia. X-Ray of the chest inficates bilateral pneumonia. Initially in ICU on Bipap / [place] / steroids and IV antibiotics. Hx of COPD, Bipolar, DB II and no home O2. She is oriented to to self only, angelita restrain on and camera monitoring service in use. She is impulsive and has had multiple episodes of attempting to exit the bed. 0046: Medicated with PRN Haldol IM for increrased aggression, and attempting to strike at staff while asissting her to BSC.
[2022-12-01] MEDS ORDERED: HALO2 PO (15:11)
[2022-12-01] MEDS ORDERED: HYOS.125 PO (15:11)
[2022-12-01] MEDS ORDERED: MORP20L SL (15:13)
--- NOTE | 2022-12-01 16:14 | NUR ---
DISCHARGE SUMMARY PT DISCHARGED HOME ON HOSPICE. GURNEY TRANSPORT LEFT WITH PATIENT ON GURNEY AT 1612. PT'S DAUGHTER SUNNY NOTIFIED THAT PATIENT IS ON HER WAY. [facility]. PT'S HOME MEDICATIONS FROM PHARMACY SENT HOME WITH PATIENT WELL. NO IV IN PLACE AT TIME OF DISCHARGE, ALL BELONGINGS RETURNED. MEDICATIONS FAXED TO [facility] IN [place]
== END 2022-12-01 16:13 | disposition hospice, home (50) | DRG 193 ==
LOC: ER 17:18 → ICUW 20:41 → ICUE 20:46 → MEDS 11-29 13:40
PROVIDERS: Internal Medicine; Student in an Organized Health Care Education/Training Program; ADMIT Internal Medicine
PROC: 5A09457 Assistance with Respiratory Ventilation, 24-96 Consecutive Hours, Continuous Positive Airway Pressure (ICD-10-PCS; principal; 2022-11-26)
PROC: 4A133R1 Monitoring of Arterial Saturation, Peripheral, Percutaneous Approach (ICD-10-PCS; 2022-11-26)
PROC: 0T9B70Z Drainage of Bladder with Drainage Device, Via Natural or Artificial Opening (ICD-10-PCS; 2022-11-26)
DX: J18.9 Pneumonia, unspecified organism (principal); J96.21 Acute and chronic respiratory failure with hypoxia; J44.1 Chronic obstructive pulmonary disease with (acute) exacerbation; J44.0 Chronic obstructive pulmonary disease with (acute) lower respiratory infection; E87.29 Other acidosis; N39.0 Urinary tract infection, site not specified; F31.9 Bipolar disorder, unspecified; G89.29 Other chronic pain; Z51.5 Encounter for palliative care; E11.9 Type 2 diabetes mellitus without complications; I10 Essential (primary) hypertension; K21.9 Gastro-esophageal reflux disease without esophagitis; K59.00 Constipation, unspecified; F17.210 Nicotine dependence, cigarettes, uncomplicated; E86.9 Volume depletion, unspecified; I35.0 Nonrheumatic aortic (valve) stenosis; M54.9 Dorsalgia, unspecified; F11.10 Opioid abuse, uncomplicated; Z20.822 Contact with and (suspected) exposure to COVID-19; Z88.8 Allergy status to other drugs, medicaments and biological substances; Z99.81 Dependence on supplemental oxygen; Z79.899 Other long term (current) drug therapy; Z79.82 Long term (current) use of aspirin; Z79.01 Long term (current) use of anticoagulants; Z79.52 Long term (current) use of systemic steroids; Z79.811 Long term (current) use of aromatase inhibitors; Z79.51 Long term (current) use of inhaled steroids; Z79.891 Long term (current) use of opiate analgesic; Z85.41 Personal history of malignant neoplasm of cervix uteri; Z90.49 Acquired absence of other specified parts of digestive tract; Z90.710 Acquired absence of both cervix and uterus
CPT/HCPCS: 0241U; 36415; 36600; 51702; 71045; 80048; 80053; 81001; 82803; 82947; 83605; 83880; 84145; 84484; 85014; 85018; 85025; 85027; 87040; 87070; 87086; 87205; 93005; 93010; 94640; 94644; 94660; 94664; 94760; 94762; 96361-59; 96365-59; 96375-59; 99285-25; A9270; J0456; J0696; J1630; J1650; J1940; J2405; J2930; J7030; J7050; J7512; P9047

== ENCOUNTER 2023-05-28 13:01 | Inpatient (IN) | payer OTHER ==
[~2023-05-28] VITALS: Ht 162.6 cm; Wt 52.2 kg
[~2023-05-28 13:01] MED LIST changes: +HALO2 PO; +HYDROCODONE-AC1 EAC7 PO; +HYOS.125 PO; +MORP20L SL; +TRELEGY ELLIPT1 EACH
[2023-05-28 13:18] LABS: Hematocrit 38.5 % (33.0-51.0); Hemoglobin 11.7 g/dL (11.5-16.0); Mean Corpuscular HGB 30.3 pg (26.0-34.0); Mean Corpuscular HGB Conc 30.4 g/dL (31.5-36.5); Mean Corpuscular Volume 100 fL (80-100); Mean Platelet Volume 9.7 fL (9.1-12.4); Platelet Count 427 K/mm3 (150-400); RDW Coefficient Variation 13.9 % (11.7-14.2); RDW Standard Deviation 50.7 fL (35.1-46.3); Red Blood Cell Count 3.86 M/mm3 (3.80-5.20); White Blood Cell Count 25.57 K/mm3 (4.00-11.30)
[2023-05-28 13:45] LABS: BASOPHILS PERCENT MAN 0 % (0-2); EOSINOPHILS PERCENT MAN 0 % (0-6); LYMPHOCYTES ABSOLUTE MAN 1.27 K/mm3 (0.84-5.20); LYMPHOCYTES PERCENT MAN 5 % (21-46); METAMYELOCYTE ABSOLUTE MAN 0.25 K/mm3 (0.00-0.00); METAMYELOCYTE PERCENT MAN 1 % (0-0); MONOCYTES ABSOLUTE MAN 3.06 K/mm3 (0.16-1.47); MONOCYTES PERCENT MAN 12 % (4-13); MYELOCYTE ABSOLUTE MAN 0.76 K/mm3 (0.00-0.00); MYELOCYTE PERCENT MAN 3 % (0-0); SEG NEUTROPHILS PERCENT MAN 79 % (41-73); TOTAL CELLS COUNTED 100
[2023-05-28 13:48] LABS: Albumin, Blood 2.2 g/dL (3.4-5.0); Albumin/Globulin Ratio 0.5 (0.8-1.8); Bilirubin, Total 0.8 mg/dL (0.1-1.0); Bun/Creatinine Ratio 53.3 (12.0-20.0); Calcium, Blood 10.2 mg/dL (8.5-10.1); Creatinine, Blood 0.32 mg/dL (0.40-1.00); Globulin, Blood 4.7 g/dL (2.2-4.0); Potassium, Blood 4.8 mmol/L (3.5-5.5); Total Protein, Blood 6.9 g/dL (6.4-8.2)
[2023-05-28 14:11] LABS: Influenza A, PCR NEGATIVE (NEGATIVE); Influenza B, PCR NEGATIVE (NEGATIVE); Resp Syncytial Virus, PCR NEGATIVE (NEGATIVE); SARS-Cov-2 (COVID-19) PCR, MMC NEGATIVE (NEGATIVE)
[2023-05-28 17:47] LABS: pH Blood Arterial 7.12 (7.35-7.45)
[2023-05-28 17:48] LABS: PCO2 Arterial > 105 mmHg (35-45); PO2 Arterial 68.2 mmHg (80-100)
[2023-05-28 17:49] VITALS: BP 120/71
[2023-05-28 17:54] LABS: Source, Urine Foley catheter
[2023-05-28 18:01] LABS: Appearance, Urine Clear (Clear); Bilirubin, Urine Neg (Neg); Blood, Urine 1+ (Neg); Color, Urine Amber (P-Yellow); Glucose Qualitative, Urine Neg (Neg); Ketones, Urine 3+ (Neg); Leukocyte Esterase, Urine Neg (Neg); Nitrite, Urine Neg (Neg); Protein, Urine 3+ (Neg); Specific Gravity, Urine 1.025 (1.003-1.022); Urobilinogen, Urine 2+ (Normal)
[2023-05-28 18:12] LABS: Bacteria Many /hpf; Squamous Epithelial Cells Few /hpf (Few); Yeast/Fungi Urine Few /hpf
--- NOTE | 2023-05-28 18:28 | NUR ---
PT ARRIVED IN PCU06 VIA GURNEY FROM [facility] REPORT RECEIVED FROM REMI UMANZOR. PT TRANSFERRED VIA SLIDER SHEET. PT UNRESPONSIVE UPON ARRIVAL ON BIPAP WITH SETTINGS 16/8 FIO2 60% SATS 90-91% WILL OCCASIONALLY MOAN AND GROAN, PT'S UPPER AND LOWER EXTREMITIES FLACCID UNRESPONSIVE EVEN WITH PAIN (CHEST RUB). NO FAMILY AT THE BEDSIDE. PER REPORT PT WAS CURRENTLY ENROLLED IN HOSPICE FAMILY DECIDED TO BRING PT IN TO GET TREATED. SIGNED POLST CAME IN WITH THE PT SAYING DNR COMFORT CARE. ABG WAS DONE PH CRITICAL AT 7.12, CO2 >105, CALLED DR BENITES ABOUT THE RESULT ORDERED ONE TIME DOSE OF 100MEQ NAHCO3. PANDEY WAS PLACED FOR ACURATE I&O'S, SAMPLE WAS SENT TO LAB. PT HAS REDNESS ON COCCYX HEELS AND BONY AREAS, MEPILEX IN PLACE. MORPHINE 2MG WAS ORDERED Q2HRS, PTS TACHYPNEIC LABORED BREATHING ON BIPAP RR AT 48-54, HRR ST AT 103, SBP 114-120'S, AFEBRILE. PALLIATIVE CARE CONSULTED. WILL REPORT TO ONCOMING SHIFT
--- NOTE | 2023-05-28 19:25 | NUR ---
update: Spoke with Daughter Alanna about patients ABG results, Mental status and Respiratory status. Alanna states that she knows the pt would not want to suffer but wants to try to see if the BIPAP will help her respiratory status improve prior to making a decision about comfort care and withdrawing BIPAP. Agreed to have staff call her at 2100 with an update on patient status and make further care decisions a this time. Update on conversation told to Donna rn's.
[2023-05-28 20:15] VITALS: BP 132/77
--- NOTE | 2023-05-28 21:11 | NUR ---
PATIENT UPDATE THIS RN SPOKE TO DAUGHTER SUNNY ON THE PHONE REGARDING PT CONTINUING TO BE DEPENDENT ON BIPAP WITH RR OF 50'S. THIS RN DISCUSSED PATIENT'S WISHES OF BEING A DNR AND COMFORT CARE WITH DAUGHTER SUNNY, ALONG WITH PREVIOUSLY BEING HOME ON HOSPICE PRIOR TO ADMISSION. DAUGHTER SUNNY EXPRESSED HER WISHES TO LET HER MOM BE ON COMOFORT CARE AND TO REMOVE THE BIPAP. HOME IS [facility] IN [place]. DAUGHTER EXPRESSED NOT WANTING TO COME IN TO SEE THE PATIENT AT THIS TIME, BUT WOULD LIKE A CALL WHEN PATIENT PASSES. THIS RN CALLED MD ABRAHAM TO DISCUSS PLAN OF CARE AND THE CONVERSATION THAT THIS RN HAD WITH JOYCELYN CORREA. MD ABRAHAM WITH ORDERS FOR COMFORT CARE ORDERS AND MEDICATION PER PROTOCOL. THIS RN SPOKE TO SUPERVISOR [employer]KE REGARDING DISCUSSION WITH DOCTOR AND DAUGHTER OF PATIENT. ORDERS TO BE PLACED FOR COMFORT CARE. THIS RN WILL MEDICATE AND PROVIDE INTERVENTIONS APPROPRIATE.
--- NOTE | 2023-05-28 22:09 | NUR ---
UPDATE SEE PREVIOUS NOTE. PATIENT MEDICATED PER EMAR WITH COMFORT CARE MEDS AND TAKEN OFF OF BIPAP. AROUND 0. PATIENT AT 2200. VERIFIED BY THIS RN AND JIMI UMANZOR PER PROTOCOL. THIS RN PREVIOUSLY SPOKE TO DAUGHTER RN, AND HOME WILL BE [place]. THIS RN ATTEMPTED TO CALL DAUGHTER SUNNY, BUT THERE WAS NO ANSWER. DAUGHTER PREVIOUSLY EXPRESSED WISHES TO NOT COME IN TO SEE THIS PATIENT AT TIME OF PASSING. THIS RN WILL CONTINUE TO ATTEMPT TO CALL DAUGHTER TO UPDATE HER ON THE PATIENT BEING . MD WILL BE UPDATED. LINES LEFT IN PLACE D/T PT PASSING WITHIN 24HR OF ADMISSION.
--- NOTE | 2023-05-28 23:03 | NUR ---
THIS RN SPOKE TO DAUGHTER SUNNY REGARDING PT BEING . DAUGHTER SUNNY AGAIN EXPRESSED WISHES TO HAVE HER TAKEN TO [facility] AND DID NOT WISH TO COME IN TO SEE HER PRIOR TO TRANSFER TO HOME.
== END 2023-05-29 00:06 | DRG 193 ==
LOC: ER 13:01 → PCU 16:30
PROVIDERS: Emergency Medicine; ADMIT Internal Medicine
PROC: 5A09357 Assistance with Respiratory Ventilation, Less than 24 Consecutive Hours, Continuous Positive Airway Pressure (ICD-10-PCS; principal; 2023-05-28)
DX: J18.9 Pneumonia, unspecified organism (principal); J96.21 Acute and chronic respiratory failure with hypoxia; J96.22 Acute and chronic respiratory failure with hypercapnia; J44.0 Chronic obstructive pulmonary disease with (acute) lower respiratory infection; J44.1 Chronic obstructive pulmonary disease with (acute) exacerbation; Z51.5 Encounter for palliative care; Z66 Do not resuscitate; I10 Essential (primary) hypertension; E11.9 Type 2 diabetes mellitus without complications; Z20.822 Contact with and (suspected) exposure to COVID-19; K21.9 Gastro-esophageal reflux disease without esophagitis; F31.9 Bipolar disorder, unspecified; M54.50 Low back pain, unspecified; F11.90 Opioid use, unspecified, uncomplicated; G89.29 Other chronic pain; Z79.899 Other long term (current) drug therapy; Z90.710 Acquired absence of both cervix and uterus; Z85.41 Personal history of malignant neoplasm of cervix uteri; Z90.49 Acquired absence of other specified parts of digestive tract; Z87.891 Personal history of nicotine dependence; Z88.8 Allergy status to other drugs, medicaments and biological substances
CPT/HCPCS: 0241U; 36600; 71045; 80053; 81001; 82803; 82947; 83880; 84484; 85025; 93005; 93010; 94640; 94644; 94660; 94664; 94762; 96365; 96366; 96375; 96376; 99285-25; A9270; J0456; J0696; J1940; J2270; J2930; J7050